=== PATIENT | female | born 1945 | race Caucasian/White ===

== ENCOUNTER → 2018-05-23 | Outpatient (CLI) | payer MEDICARE ==
[~2018-05-23] MED LIST: OXYACE5T PO; SULF10OPSA OD
[2018-05-25 12:14] LABS: Antinuclear Antibody Screen Negative (Negative)
== END | disposition home or self-care (01) ==
LOC: LAB EV 14:56 → LAB SHORT 14:56
PROVIDERS: Physician Assistant Medical
DX: R21 Rash and other nonspecific skin eruption (principal)
CPT/HCPCS: 85651; 86038; 86140

== ENCOUNTER 2019-08-31 11:25 | Day surgery (SDC) | payer MEDICARE ==
[~2019-08-31] VITALS: Ht 167.6 cm; Wt 75.7 kg
[~2019-08-31 11:25] MED LIST changes: +VITAMINS; +VOLTAREN100 GM
--- NOTE | 2019-08-31 15:08 | NUR ---
08/31/19 1508 Loren Lechuga 56 AND 62 MELANI USED ON THE UPPER ENDOSCOPY BY DR NICKERSON
== END 2019-08-31 15:50 | disposition home or self-care (01) ==
LOC: ORSCSDS 11:25
DX: R13.10 Dysphagia, unspecified (principal); D12.3 Benign neoplasm of transverse colon; K63.5 Polyp of colon; Z86.010 Personal history of colon polyps; K21.9 Gastro-esophageal reflux disease without esophagitis; K57.30 Diverticulosis of large intestine without perforation or abscess without bleeding; K64.8 Other hemorrhoids; K64.4 Residual hemorrhoidal skin tags
CPT/HCPCS: 88305; 88342; J2704; J7120

== ENCOUNTER 2020-07-12 19:13 | Emergency (ER) | payer OTHER ==
[~2020-07-12] VITALS: Ht 170.2 cm; Wt 74.8 kg
[2020-07-12 20:14] LABS: BASOPHILS ABSOLUTE AUTO 0.07 K/mm3 (0.00-0.23); BASOPHILS PERCENT AUTO 1 % (0-2); EOSINOPHILS ABSOLUTE AUTO 0.09 K/mm3 (0.00-0.68); EOSINOPHILS PERCENT AUTO 1 % (0-6); Hematocrit 44.9 % (33.0-51.0); Hemoglobin 14.4 g/dL (11.5-16.0); IMMATURE GRAN ABSOLUTE AUTO 0.06 K/mm3 (0.00-0.10); IMMATURE GRAN PERCENT AUTO 0 % (0-1); LYMPHOCYTES ABSOLUTE AUTO 1.18 K/mm3 (0.84-5.20); LYMPHOCYTES PERCENT AUTO 8 % (21-46); MONOCYTES ABSOLUTE AUTO 1.04 K/mm3 (0.16-1.47); MONOCYTES PERCENT AUTO 7 % (4-13); Mean Corpuscular HGB 29.4 pg (26.0-34.0); Mean Corpuscular HGB Conc 32.1 g/dL (31.5-36.5); Mean Corpuscular Volume 92 fL (80-100); Mean Platelet Volume 10.8 fL (9.1-12.4); NEUTROPHILS ABSOLUTE AUTO 12.29 K/mm3 (1.96-9.15); NEUTROPHILS PERCENT AUTO 83 % (41-73); Platelet Count 146 K/mm3 (150-400); RDW Standard Deviation 47.8 fL (35.1-46.3); White Blood Cell Count 14.73 K/mm3 (4.00-11.30)
[2020-07-12 20:33] LABS: Alanine Aminotransfer (ALT/SGP 25 U/L (12-78); Albumin/Globulin Ratio 0.9 (0.8-1.8); Alk Phos 94 U/L (50-136); Anion Gap 7 mmol/L (6-16); Aspartate Aminotrans (AST/SGOT 18 U/L (12-37); Bilirubin, Total 0.8 mg/dL (0.1-1.0); Blood Urea Nitrogen 11 mg/dL (8-24); Bun/Creatinine Ratio 13.9 (12.0-20.0); CO2, Blood 22 mmol/L (21-32); Calcium, Blood 9.3 mg/dL (8.5-10.1); Chloride, Blood 109 mmol/L (98-108); Creatinine, Blood 0.79 mg/dL (0.40-1.00); Globulin, Blood 4.3 g/dL (2.2-4.0); Glomerular Filtration Rate >60 (60-); Glucose, Blood 115 mg/dL (70-99); Potassium, Blood 3.9 mmol/L (3.5-5.5); Sodium, Blood 138 mmol/L (136-145); Total Protein, Blood 8.3 g/dL (6.4-8.2)
[2020-07-12 22:07] LABS: Source, Urine Clean Catch
[2020-07-12 22:12] LABS: Appearance, Urine Clear (Clear); Bilirubin, Urine Neg (Neg); Blood, Urine 1+ (Neg); Color, Urine Yellow (P-Yellow); Glucose Qualitative, Urine Neg (Neg); Ketones, Urine 3+ (Neg); Leukocyte Esterase, Urine Neg (Neg); Nitrite, Urine Neg (Neg); Protein, Urine 2+ (Neg); Urobilinogen, Urine NORM (Normal); pH, Urine 6.5 (5.0-8.0)
[2020-07-12 22:21] LABS: Bacteria Mod /hpf; Red Blood Cells, Urine 0-2 /hpf (0-2); Squamous Epithelial Cells Not Seen /hpf (Few); White Blood Cells, Urine 0-2 /hpf (0-5)
[2020-07-12] MEDS ORDERED: Norco 5-325 Ta1 EACH PO (23:04)
[2020-07-12] MEDS ORDERED: IBUP400 PO (23:04)
== END 2020-07-13 00:02 | disposition home or self-care (01) ==
LOC: ER 19:13
PROVIDERS: Physician Assistant
DX: N13.2 Hydronephrosis with renal and ureteral calculous obstruction (principal); Z91.040 Latex allergy status; Z88.0 Allergy status to penicillin; Z20.828 Contact with and (suspected) exposure to other viral communicable diseases
CPT/HCPCS: 36415; 74177; 80053; 81001; 83690; 85025; 87086; 96374-59; 96375; 99284-25; J0696; J1885; J2270; J7030; Q9967; U0003

== ENCOUNTER 2020-07-19 05:49 | Inpatient (IN) | payer OTHER ==
[~2020-07-19] VITALS: Ht 170.2 cm; Wt 74.8 kg
[~2020-07-19 05:49] MED LIST changes: +IBUP400 PO; +Norco 5-325 Ta1 EACH PO
[2020-07-19 06:41] LABS: Source, Urine Clean Catch
[2020-07-19 06:50] LABS: Appearance, Urine Turbid (Clear); Blood, Urine 5+ (Neg); Color, Urine Red (P-Yellow); Glucose Qualitative, Urine Neg (Neg); Ketones, Urine 4+ (Neg); Leukocyte Esterase, Urine 2+ (Neg); Nitrite, Urine Pos (Neg); Protein, Urine 3+ (Neg); Specific Gravity, Urine 1.015 (1.003-1.022); Urobilinogen, Urine 1+ (Normal)
[2020-07-19 07:08] LABS: Bilirubin, Urine 1+ (Neg); Red Blood Cells, Urine TNTC /hpf (0-2)
[2020-07-19 07:09] LABS: Bacteria Many /hpf; Squamous Epithelial Cells Rare /hpf (Few)
[2020-07-19 07:12] LABS: BASOPHILS ABSOLUTE AUTO 0.06 K/mm3 (0.00-0.23); BASOPHILS PERCENT AUTO 0 % (0-2); EOSINOPHILS ABSOLUTE AUTO 0.08 K/mm3 (0.00-0.68); EOSINOPHILS PERCENT AUTO 1 % (0-6); Hematocrit 42.6 % (33.0-51.0); Hemoglobin 14.3 g/dL (11.5-16.0); IMMATURE GRAN ABSOLUTE AUTO 0.08 K/mm3 (0.00-0.10); IMMATURE GRAN PERCENT AUTO 1 % (0-1); LYMPHOCYTES ABSOLUTE AUTO 1.16 K/mm3 (0.84-5.20); LYMPHOCYTES PERCENT AUTO 8 % (21-46); MONOCYTES ABSOLUTE AUTO 1.07 K/mm3 (0.16-1.47); MONOCYTES PERCENT AUTO 7 % (4-13); Mean Corpuscular HGB 29.5 pg (26.0-34.0); Mean Corpuscular HGB Conc 33.6 g/dL (31.5-36.5); Mean Corpuscular Volume 88 fL (80-100); Mean Platelet Volume 10.4 fL (9.1-12.4); NEUTROPHILS ABSOLUTE AUTO 12.19 K/mm3 (1.96-9.15); NEUTROPHILS PERCENT AUTO 83 % (41-73); Platelet Count 215 K/mm3 (150-400); RDW Coefficient Variation 13.1 % (11.7-14.2); RDW Standard Deviation 41.9 fL (35.1-46.3); Red Blood Cell Count 4.85 M/mm3 (3.80-5.20); White Blood Cell Count 14.64 K/mm3 (4.00-11.30)
[2020-07-19 07:33] LABS: Alanine Aminotransfer (ALT/SGP 61 U/L (12-78); Albumin, Blood 3.6 g/dL (3.4-5.0); Albumin/Globulin Ratio 0.8 (0.8-1.8); Alk Phos 115 U/L (50-136); Anion Gap 14 mmol/L (6-16); Aspartate Aminotrans (AST/SGOT 27 U/L (12-37); Bilirubin, Total 1.1 mg/dL (0.1-1.0); Blood Urea Nitrogen 6 mg/dL (8-24); Bun/Creatinine Ratio 8.3 (12.0-20.0); CO2, Blood 19 mmol/L (21-32); Calcium, Blood 8.8 mg/dL (8.5-10.1); Chloride, Blood 97 mmol/L (98-108); Creatinine, Blood 0.73 mg/dL (0.40-1.00); Globulin, Blood 4.8 g/dL (2.2-4.0); Glomerular Filtration Rate >60 (60-); Glucose, Blood 84 mg/dL (70-99); Potassium, Blood 3.6 mmol/L (3.5-5.5); Sodium, Blood 130 mmol/L (136-145); Total Protein, Blood 8.4 g/dL (6.4-8.2)
--- NOTE | 2020-07-19 18:22 | NUR ---
SHIFT SUMMARY. ER ADMIT TODAY. A&OX4, INDEPENDENT IN ROOM. PT DENIES SOB, ON RA, LUNGS CLEAR. PT REPORTS L FLANK PAIN, PAIN WAS MANAGED WELL WITH CURRENT ORDERS. PT REPORTS MILD NAUSEA THAT RESOLVED WITH IV ZOFRAN. NS IV AT 125/HR INFUSING WITHOUT ISSUE. AT BEDSIDE INTERMITTENTLY DURING SHIFT. PT VOIDING PINK/CLEAR URINE, PT STATES SHE HAS BEEN SINCE BEFORE ADMIT. NO NEW CHANGES OR CONCERNS.
--- NOTE | 2020-07-20 04:14 | NUR ---
SHIFT SUMMARY PT CONTINUED TO REPORT PAIN TO L FLANK ALONG WITH SOME PAIN WITH URINATION. MEDICATED THROUGHOUT THE NIGHT WITH NORCO 5/325. ONLY MEDICATING WITH 1 TAB MOST OF THE NIGHT BUT PT MORE PAINFUL THIS AM SO 2 TABS WERE GIVEN. URINE LIGHT RED, UNCHANGED PER PT SINCE ADMISSION. PT AFEBRILE. NO COMPLAINTS OF NAUSEA THROUGHOUT THE NIGHT. VOIDING WELL. HTN WHEN PAINFUL. RETURNS TO WNL AFTER MEDICATION. OTHERWISE VSS. WILL CONTINUE TO MONITOR AND REPORT TO DAY RN.
[2020-07-20 05:18] LABS: BASOPHILS ABSOLUTE AUTO 0.06 K/mm3 (0.00-0.23); BASOPHILS PERCENT AUTO 1 % (0-2); EOSINOPHILS ABSOLUTE AUTO 0.13 K/mm3 (0.00-0.68); EOSINOPHILS PERCENT AUTO 1 % (0-6); Hematocrit 38.1 % (33.0-51.0); Hemoglobin 12.2 g/dL (11.5-16.0); IMMATURE GRAN ABSOLUTE AUTO 0.05 K/mm3 (0.00-0.10); IMMATURE GRAN PERCENT AUTO 1 % (0-1); LYMPHOCYTES ABSOLUTE AUTO 0.96 K/mm3 (0.84-5.20); LYMPHOCYTES PERCENT AUTO 10 % (21-46); MONOCYTES ABSOLUTE AUTO 1.02 K/mm3 (0.16-1.47); MONOCYTES PERCENT AUTO 11 % (4-13); Mean Corpuscular HGB 29.1 pg (26.0-34.0); Mean Corpuscular Volume 91 fL (80-100); Mean Platelet Volume 10.2 fL (9.1-12.4); NEUTROPHILS ABSOLUTE AUTO 7.45 K/mm3 (1.96-9.15); NEUTROPHILS PERCENT AUTO 77 % (41-73); Platelet Count 195 K/mm3 (150-400); RDW Coefficient Variation 13.7 % (11.7-14.2); RDW Standard Deviation 45.7 fL (35.1-46.3); Red Blood Cell Count 4.19 M/mm3 (3.80-5.20); White Blood Cell Count 9.67 K/mm3 (4.00-11.30)
[2020-07-20 05:46] LABS: Anion Gap 4 mmol/L (6-16); Blood Urea Nitrogen 5 mg/dL (8-24); Bun/Creatinine Ratio 7.2 (12.0-20.0); CO2, Blood 25 mmol/L (21-32); Calcium, Blood 7.9 mg/dL (8.5-10.1); Chloride, Blood 109 mmol/L (98-108); Creatinine, Blood 0.69 mg/dL (0.40-1.00); Glomerular Filtration Rate >60 (60-); Glucose, Blood 112 mg/dL (70-99); Potassium, Blood 3.6 mmol/L (3.5-5.5); Sodium, Blood 138 mmol/L (136-145)
--- NOTE | 2020-07-20 18:35 | NUR ---
SHIFT SUMMARY PT IS AOX4 AND PLEASANT. PT MEDICATED FOR PAIN X3-4 THIS SHIFT. PAIN MANAGEMENT SEEMS TO BE GOOD AND NEW PAIN MEDICATIONS ON EMAR FOR BREAKTHROUGH PAIN. PT UP AND WALKING THROUGHOUT ROOM TO EASE PAIN. PT DENIES N/V, SOB, BUT APPETITE IS POOR. IN ROOM THROUGHOUT SHIFT. PT IN BED WITH CALL LIGHT IN REACH.
--- NOTE | 2020-07-21 05:07 | NUR ---
SHIFT SUMMARY PT SLEPT WELL THIS EVENING. PAIN IMPROVED FROM PREVIOUS NIGHT. PT ONLY MEDICATED WITH 30 MG TORADOL X 1 THIS EVENING. PT REPORTS PAIN REMAINS PRESENT WITH URINATION BUT THE PAIN WAS "NOT STRONG" THIS EVENING AND RESOLVED QUICKER AFTER URINATION. URINE CONTINUES TO BE RED. PT ALSO GIVEN ONE DOSE OF PYRIDIUM THIS EVENING. OTHERWISE PT HAD UNEVENTFUL NIGHT. VITAL SIGNS STABLE. NO ACUTE CHANGES THIS SHIFT. WILL CONTINUE TO MONITOR.
[2020-07-21 08:38] LABS: BASOPHILS ABSOLUTE AUTO 0.06 K/mm3 (0.00-0.23); BASOPHILS PERCENT AUTO 1 % (0-2); EOSINOPHILS ABSOLUTE AUTO 0.28 K/mm3 (0.00-0.68); EOSINOPHILS PERCENT AUTO 3 % (0-6); Hemoglobin 12.1 g/dL (11.5-16.0); IMMATURE GRAN ABSOLUTE AUTO 0.08 K/mm3 (0.00-0.10); IMMATURE GRAN PERCENT AUTO 1 % (0-1); LYMPHOCYTES ABSOLUTE AUTO 1.49 K/mm3 (0.84-5.20); LYMPHOCYTES PERCENT AUTO 17 % (21-46); MONOCYTES ABSOLUTE AUTO 0.67 K/mm3 (0.16-1.47); MONOCYTES PERCENT AUTO 8 % (4-13); Mean Corpuscular HGB 29.7 pg (26.0-34.0); Mean Corpuscular HGB Conc 31.8 g/dL (31.5-36.5); Mean Corpuscular Volume 93 fL (80-100); Mean Platelet Volume 10.2 fL (9.1-12.4); NEUTROPHILS ABSOLUTE AUTO 6.32 K/mm3 (1.96-9.15); NEUTROPHILS PERCENT AUTO 71 % (41-73); Platelet Count 211 K/mm3 (150-400); RDW Coefficient Variation 14.1 % (11.7-14.2); RDW Standard Deviation 48.4 fL (35.1-46.3); Red Blood Cell Count 4.07 M/mm3 (3.80-5.20)
[2020-07-21 08:56] LABS: Anion Gap 7 mmol/L (6-16); Blood Urea Nitrogen 7 mg/dL (8-24); Bun/Creatinine Ratio 10.3 (12.0-20.0); CO2, Blood 24 mmol/L (21-32); Calcium, Blood 8.4 mg/dL (8.5-10.1); Chloride, Blood 110 mmol/L (98-108); Creatinine, Blood 0.68 mg/dL (0.40-1.00); Glomerular Filtration Rate >60 (60-); Glucose, Blood 109 mg/dL (70-99); Potassium, Blood 3.5 mmol/L (3.5-5.5); Sodium, Blood 141 mmol/L (136-145)
--- NOTE | 2020-07-21 19:35 | NUR ---
SHIFT SUMMARY PT IS AOX4. PT HAS INCREASED PAIN THIS SHIFT. PAIN MEDICATION GIVEN X3 PER EMAR. PT REMAINED AT LEVEL 5-[address] ARAUJO AWARE OF PAIN STATUS. PT URINE LESS CLOUDY/RED THIS SHIFT, BUT STILL BLOODY. PT AMBULATED TO HELP WITH PAIN. IN WITH PT THROUGHOUT SHIFT. PT IS IN BED, CALL LIGHT IN REACH, IV INFUSING.
--- NOTE | 2020-07-22 04:45 | NUR ---
SHIFT SUMMARY PT'S PAIN MORE SEVERE THIS EVENING THAN PREVIOUS NIGHT. MEDICATED X 2 W/ 1 TAB NORCO 5/325 AND X 1 W/ 30 MG TORADOL. CONTINUED TO HAVE PAIN AND BURNING WITH URINATION AND LEFT FLANK PAIN. URINE IMPROVING THIS EVENING, LESS RED AT END OF SHIFT THAN AT START. PT REPORTED THAT SHE HAD A BM THIS SHIFT, LARGE BROWN AND FORMED. IT WAS NOT VISUALIZED BY STAFF. PT HYPERTENSIVE THIS EVENING AGAIN. LIKELY RELATED TO PAIN. OTHERWISE VSS. WILL CONTINUE TO MONITOR AND REPORT TO DAY RN.
[2020-07-22] MEDS ORDERED: HYDR1TAB94 PO (13:02)
[2020-07-22] MEDS ORDERED: ACET325 PO (13:02)
[2020-07-22] MEDS ORDERED: Pyridium100 MG PO (13:04)
[2020-07-22] MEDS ORDERED: Senokotxtra17.2 MG PO (13:06)
[2020-07-22] MEDS ORDERED: TAMS.4ER PO (13:07)
[2020-07-22] MEDS ORDERED: KETO10 PO (13:08)
--- NOTE | 2020-07-22 15:35 | NUR ---
DISCHARGE SUMMARY PT DC TO HOME WITH . DISCHARGE INSTRUCTIONS DISCUSSED WITH PT, INCLUDING FOLLOW UP APPT AND MEDICATION CHANGES. PT VERBALIZES UNDERSTANDING. DENIES FURTHER QUESTIONS AT THIS TIME. VITALS REVIEWED. PAIN MEDICATION ADMINISTERED. PT ESCORTED OUT IN WC WITH .
== END 2020-07-22 15:43 | disposition home or self-care (01) | DRG 698 ==
LOC: ER 05:49 → MEDS 10:26 → ENPENDDIS 07-22 10:55 → MEDS 07-22 15:43
PROVIDERS: Emergency Medicine; Internal Medicine; Nurse Practitioner Acute Care; ADMIT Internal Medicine
DX: T83.592A Infection and inflammatory reaction due to indwelling ureteral stent, initial encounter (principal); A41.9 Sepsis, unspecified organism; E87.2 Acidosis; N10 Acute pyelonephritis; E87.1 Hypo-osmolality and hyponatremia; E86.0 Dehydration; Z86.12 Personal history of poliomyelitis; Z96.0 Presence of urogenital implants
CPT/HCPCS: 36415; 74177; 80048; 80053; 81001; 83605; 83690; 85025; 87040; 87086; 96361; 96365-59; 96375; 97161; 99285-25; A9270; A9270-GY; J0696; J1650; J1885; J2270; J2405; J7030; Q9967

== ENCOUNTER 2021-12-19 08:24 | Day surgery (SDC) | payer OTHER ==
[~2021-12-19 08:24] MED LIST changes: +ACET325 PO; +HYDR1TAB94 PO; +KETO10 PO; +Pyridium100 MG PO; +Senokotxtra17.2 MG PO; +TAMS.4ER PO
--- NOTE | 2021-12-19 10:05 | NUR ---
PT REPOSITIONED IN BED FOR PT COMFORT. BANDAID TO LLQ ABD D&I. PT C/O PRESSURE IN THAT AREA. WILL CONTINUE TO MONITOR PT FOR CHANGES. PT AT BEDSIDE.
--- NOTE | 2021-12-19 10:32 | NUR ---
PT C/O PAIN WORSE THEN WHEN SHE ARRIVE TO DAY SURGERY. DRESSING REMAINS D&I, ABD SOFT. PT REPORTS THAT IT FILLS LIKE A FIST TO THAT AREA RATES PAIN 9/10. PT STARTES SHE USUALLY DOES NOT TAKE ANYTHING AT HOME FOR PAIN. AWAITING RETURN CALL FROM PROVIDED AT THIS TIME.
--- NOTE | 2021-12-19 10:58 | NUR ---
SPOKE WITH DR. CAMPOS AND UPDATED PT ON PT CONDITION. VO FOR TYLENOL. PT OFFERED ICE WHICH SHE DECLINED. PT DECLINED FOR ANYTHING TO EAT OR DRINK.
--- NOTE | 2021-12-19 11:19 | NUR ---
PT GIVEN TYLENOL 1000MG PO. PT ABLE TO DRINK WARM WATER. PT AMB TO BATHROOM. REPORTS THAT PAIN DECREASED WHEN SHE IS UP AND WALKING AROUND.
--- NOTE | 2021-12-19 11:58 | NUR ---
PT REPORTS PAIN ALMOST RESOLVED. NO ACUTE DISTRESS. REVIEWED DISCHARGE INSTRUCTIONS WITH PT AND HER . OUT OF DEPARTMENT VIA WHEELCHAIR. NO ACUTE DISTRESS.
== END 2021-12-19 11:59 | disposition home or self-care (01) ==
LOC: MOI CT 08:24 → ORSCMMR 08:24 → CT 09:00 → ORSCMMR 09:00
DX: C48.2 Malignant neoplasm of peritoneum, unspecified (principal); C78.6 Secondary malignant neoplasm of retroperitoneum and peritoneum; Z88.0 Allergy status to penicillin; Z91.040 Latex allergy status
CPT/HCPCS: 49180; 77012; 88305; 88341; 88342; A9270

== ENCOUNTER 2022-01-01 15:06 | Inpatient (IN) | payer OTHER ==
[~2022-01-01] VITALS: Ht 167.6 cm; Wt 77.2 kg
[2022-01-01 17:17] LABS: BASOPHILS ABSOLUTE AUTO 0.03 K/mm3 (0.00-0.23); BASOPHILS PERCENT AUTO 0 % (0-2); EOSINOPHILS PERCENT AUTO 0 % (0-6); Hematocrit 44.9 % (33.0-51.0); Hemoglobin 14.9 g/dL (11.5-16.0); IMMATURE GRAN ABSOLUTE AUTO 0.05 K/mm3 (0.00-0.10); IMMATURE GRAN PERCENT AUTO 0 % (0-1); LYMPHOCYTES ABSOLUTE AUTO 0.91 K/mm3 (0.84-5.20); LYMPHOCYTES PERCENT AUTO 6 % (21-46); MONOCYTES ABSOLUTE AUTO 0.68 K/mm3 (0.16-1.47); MONOCYTES PERCENT AUTO 5 % (4-13); Mean Corpuscular HGB 29.4 pg (26.0-34.0); Mean Corpuscular HGB Conc 33.2 g/dL (31.5-36.5); Mean Corpuscular Volume 89 fL (80-100); Mean Platelet Volume 11.2 fL (9.1-12.4); NEUTROPHILS ABSOLUTE AUTO 12.88 K/mm3 (1.96-9.15); NEUTROPHILS PERCENT AUTO 89 % (41-73); Platelet Count 283 K/mm3 (150-400); RDW Coefficient Variation 14.4 % (11.7-14.2); RDW Standard Deviation 46.3 fL (35.1-46.3); Red Blood Cell Count 5.07 M/mm3 (3.80-5.20); White Blood Cell Count 14.55 K/mm3 (4.00-11.30)
[2022-01-01 17:41] LABS: Alanine Aminotransfer (ALT/SGP 35 U/L (12-78); Albumin/Globulin Ratio 0.9 (0.8-1.8); Alk Phos 85 U/L (50-136); Anion Gap 6 mmol/L (6-16); Aspartate Aminotrans (AST/SGOT 53 U/L (12-37); Bilirubin, Total 1.2 mg/dL (0.1-1.0); Blood Urea Nitrogen 11 mg/dL (8-24); Bun/Creatinine Ratio 17.5 (12.0-20.0); CO2, Blood 22 mmol/L (21-32); Calcium, Blood 8.9 mg/dL (8.5-10.1); Chloride, Blood 102 mmol/L (98-108); Creatinine, Blood 0.63 mg/dL (0.40-1.00); Globulin, Blood 4.5 g/dL (2.2-4.0); Glomerular Filtration Rate >60 (60-); Glucose, Blood 124 mg/dL (70-99); Potassium, Blood 4.6 mmol/L (3.5-5.5); Sodium, Blood 130 mmol/L (136-145); Total Protein, Blood 8.5 g/dL (6.4-8.2)
[2022-01-01 22:54] LABS: Influenza A, PCR NEGATIVE (NEGATIVE); Influenza B, PCR NEGATIVE (NEGATIVE); Resp Syncytial Virus, PCR NEGATIVE (NEGATIVE); SARS-Cov-2 (COVID-19) PCR, MMC NEGATIVE (NEGATIVE)
[2022-01-02 05:09] LABS: BASOPHILS ABSOLUTE AUTO 0.03 K/mm3 (0.00-0.23); BASOPHILS PERCENT AUTO 0 % (0-2); EOSINOPHILS ABSOLUTE AUTO 0.09 K/mm3 (0.00-0.68); EOSINOPHILS PERCENT AUTO 1 % (0-6); Hematocrit 39.2 % (33.0-51.0); Hemoglobin 12.8 g/dL (11.5-16.0); IMMATURE GRAN ABSOLUTE AUTO 0.04 K/mm3 (0.00-0.10); IMMATURE GRAN PERCENT AUTO 0 % (0-1); LYMPHOCYTES ABSOLUTE AUTO 0.97 K/mm3 (0.84-5.20); LYMPHOCYTES PERCENT AUTO 9 % (21-46); MONOCYTES ABSOLUTE AUTO 1.06 K/mm3 (0.16-1.47); MONOCYTES PERCENT AUTO 10 % (4-13); Mean Corpuscular HGB 29.4 pg (26.0-34.0); Mean Corpuscular HGB Conc 32.7 g/dL (31.5-36.5); Mean Corpuscular Volume 90 fL (80-100); NEUTROPHILS ABSOLUTE AUTO 8.39 K/mm3 (1.96-9.15); NEUTROPHILS PERCENT AUTO 79 % (41-73); Platelet Count 209 K/mm3 (150-400); RDW Coefficient Variation 14.4 % (11.7-14.2); RDW Standard Deviation 47.2 fL (35.1-46.3); Red Blood Cell Count 4.36 M/mm3 (3.80-5.20); White Blood Cell Count 10.58 K/mm3 (4.00-11.30)
[2022-01-02 05:33] LABS: Alanine Aminotransfer (ALT/SGP 26 U/L (12-78); Albumin, Blood 3.2 g/dL (3.4-5.0); Albumin/Globulin Ratio 0.9 (0.8-1.8); Alk Phos 70 U/L (50-136); Anion Gap 6 mmol/L (6-16); Aspartate Aminotrans (AST/SGOT 27 U/L (12-37); Bilirubin, Total 0.8 mg/dL (0.1-1.0); Blood Urea Nitrogen 8 mg/dL (8-24); Bun/Creatinine Ratio 14.2 (12.0-20.0); CO2, Blood 25 mmol/L (21-32); Calcium, Blood 8.4 mg/dL (8.5-10.1); Chloride, Blood 107 mmol/L (98-108); Creatinine, Blood 0.56 mg/dL (0.40-1.00); Globulin, Blood 3.4 g/dL (2.2-4.0); Glomerular Filtration Rate >60 (60-); Glucose, Blood 122 mg/dL (70-99); Potassium, Blood 3.4 mmol/L (3.5-5.5); Sodium, Blood 138 mmol/L (136-145); Total Protein, Blood 6.6 g/dL (6.4-8.2)
--- NOTE | 2022-01-02 06:14 | NUR ---
Patient came in for abdominal pain N/V newly diagnosed with Uterine Cancer. Patient is alert and oriented x4, independent gait steady. No complains of pain. No N/V. Complains of constipation, her last BM was 01/01 but it was only a streak. Skin intact. Call light within reach. NPO.
--- NOTE | 2022-01-02 09:00 | NUR ---
PT PLEASANT COOP A/O. STATES ABD SOME TENDER WITH PALP. OTHERWISE OKAY. IS WALKING HALLS INDEPENDANTLY. ADMITS SMALL 1/2 CUP AMOUNT OF DIARRHEA THIS AM. H/R REG, NO MURMER NOTED. NO TELE. LUNGS CLEAR,RESP EASY, UNLABORED. ON R/A. BT X4 TINKLEY SOUNDS NOTED, ABD TENDER WITH PALP. OTHERWISE DENIES PAIN. LAST BM THIS AM NOTED. STATES NO REAL B/M FOR MANY DAYS. VOIDSINDEPENDANTLY TO BATHROOM. BED IN LOW POSITION, CALL LITE IN REACH, CALLS APPROP
--- NOTE | 2022-01-02 10:39 | NUR ---
SPOKE TO DR ROSS. PT STATES HAS HEAD C/T SCHEDULED FOR TODAY OUTPT. 3PM., HE OKAY SCHEDULE WITH US TO DO WHILE HERE. CALLED C/T. VERIFIED IS HEAD/BRAIN C/T W & W/O CONTRAST. WILL NEED TO BE DONE AFTER 1730 HAD CONTRST YEST ON ABD C/T. DR ROSS RECOMMENDS NOT DO AT THIS TIME.
--- NOTE | 2022-01-02 18:21 | NUR ---
PT QUITE PLEASANT TODAY. LIGHT ABD PAIN. HAS BEEN UP WALKING HALLS TODAY. HAS ADMITTED TO 2 SMALL DIARRHEA TODAY. HAVE NOT SEEN SURGICAL CONSULT DR TODAY. [facility] PLACEMENT SEWING DEPARTMENT SUPERVISOR, RENAN, CALLED ABOUT STATUS. REFERRED TO DR ROSS. FAMILY HAS BEEN IN TO SEE TODAY. NO NEW CONCERNS NOTED. BED IN LOW POSITION, CA LL LITE IN REACH, CALLS APPROP
--- NOTE | 2022-01-02 19:31 | NUR ---
DR ROSS STATES PT TO GO TO [facility]. CHARGE HAS BEEN NOTIFIED. REPORT CALLED TO NEISHA SARMIENTO, 193.
== END 2022-01-02 22:02 | disposition short-term general hospital (02) | DRG 755 ==
LOC: ER 15:06 → MEDS 22:29
PROVIDERS: Emergency Medicine; Physician Assistant; ADMIT Internal Medicine
DX: C55 Malignant neoplasm of uterus, part unspecified (principal); E87.1 Hypo-osmolality and hyponatremia; Z79.899 Other long term (current) drug therapy; Z98.890 Other specified postprocedural states; I10 Essential (primary) hypertension; Z20.822 Contact with and (suspected) exposure to COVID-19; Z91.040 Latex allergy status; Z88.0 Allergy status to penicillin; Z87.442 Personal history of urinary calculi; Z90.49 Acquired absence of other specified parts of digestive tract
CPT/HCPCS: 0241U; 36415; 74177; 80053; 83690; 85025; 96374; 96375; 99284-25; C9113; J1650; J1885; J2405; J7030; J7121; Q9967

== ENCOUNTER 2022-02-22 08:49 | Emergency (ER) | payer OTHER ==
[~2022-02-22] VITALS: Ht 167.6 cm; Wt 76.2 kg
[2022-02-22] MEDS ORDERED: Percocet 5-3251 EACH PO (09:05)
[2022-02-22] MEDS ORDERED: OLAN2.5 (09:06)
[2022-02-22] MEDS ORDERED: ONDA4 PO (09:07)
[2022-02-22] MEDS ORDERED: ESCI10 PO (09:07)
[2022-02-22 09:49] LABS: Hematocrit 43.3 % (33.0-51.0); Hemoglobin 14.9 g/dL (11.5-16.0); Mean Corpuscular HGB 29.9 pg (26.0-34.0); Mean Corpuscular HGB Conc 34.4 g/dL (31.5-36.5); Mean Corpuscular Volume 87 fL (80-100); Mean Platelet Volume 12.4 fL (9.1-12.4); Platelet Count 81 K/mm3 (150-400); RDW Coefficient Variation 14.4 % (11.7-14.2); RDW Standard Deviation 46.4 fL (35.1-46.3); Red Blood Cell Count 4.98 M/mm3 (3.80-5.20)
[2022-02-22 10:05] LABS: Albumin, Blood 3.8 g/dL (3.4-5.0); Albumin/Globulin Ratio 0.9 (0.8-1.8); Bilirubin, Total 1.9 mg/dL (0.1-1.0); Bun/Creatinine Ratio 34.5 (12.0-20.0); Calcium, Blood 9.5 mg/dL (8.5-10.1); Creatinine, Blood 0.67 mg/dL (0.40-1.00); Globulin, Blood 4.2 g/dL (2.2-4.0); Magnesium, Blood 1.8 mg/dL (1.6-2.4); Potassium, Blood 3.4 mmol/L (3.5-5.5)
[2022-02-22 10:11] LABS: BASOPHILS ABSOLUTE AUTO 0.01 K/mm3 (0.00-0.23); BASOPHILS PERCENT AUTO 1 % (0-2); EOSINOPHILS ABSOLUTE AUTO 0.03 K/mm3 (0.00-0.68); EOSINOPHILS PERCENT AUTO 4 % (0-6); IMMATURE GRAN ABSOLUTE AUTO 0.01 K/mm3 (0.00-0.10); IMMATURE GRAN PERCENT AUTO 1 % (0-1); LYMPHOCYTES ABSOLUTE AUTO 0.34 K/mm3 (0.84-5.20); LYMPHOCYTES PERCENT AUTO 44 % (21-46); MONOCYTES ABSOLUTE AUTO 0.25 K/mm3 (0.16-1.47); MONOCYTES PERCENT AUTO 33 % (4-13); NEUTROPHILS ABSOLUTE AUTO 0.13 K/mm3 (1.96-9.15); NEUTROPHILS PERCENT AUTO 17 % (41-73)
[2022-02-22 10:17] LABS: White Blood Cell Count 0.77 K/mm3 (4.00-11.30)
[2022-02-22] MEDS ORDERED: OLAN10A MM (12:16)
== END 2022-02-22 12:51 | disposition home or self-care (01) ==
LOC: ER 08:49
PROVIDERS: Physician Assistant
DX: R11.2 Nausea with vomiting, unspecified (principal); T45.1X5A Adverse effect of antineoplastic and immunosuppressive drugs, initial encounter; Z88.0 Allergy status to penicillin; Z91.040 Latex allergy status; Z79.899 Other long term (current) drug therapy
CPT/HCPCS: 80053; 83735; 85025; A9270; J1642; J1790; J7030

== ENCOUNTER 2022-04-24 14:17 | Day surgery (SDC) | payer OTHER ==
[~2022-04-24 14:17] MED LIST changes: +CEFD300 PO; +ESCI10 PO; +ESCITALOPRAM OXA5 MG PO; +METR500 PO; +OLAN10A MM; +OLAN2.5; +OMEP20ER PO; +ONDA4 PO; +ONDANSETRON ODT 8 MG; +OXYCODONE-ACET1 EAC3; +Percocet 5-3251 EACH PO; +SUCRALFATE PO
[2022-04-24] MEDS ORDERED: TRAM50 PO (14:48)
== END 2022-04-24 23:10 | disposition home or self-care (01) ==
LOC: RAD 14:17
DX: C57.00 Malignant neoplasm of unspecified fallopian tube (principal); Z88.0 Allergy status to penicillin; Z91.040 Latex allergy status
CPT/HCPCS: 36598; Q9967

== ENCOUNTER 2023-04-22 17:00 | Emergency (ER) | payer OTHER ==
[~2023-04-22] VITALS: Ht 167.6 cm; Wt 61.2 kg
[~2023-04-22 17:00] MED LIST changes: +TRAM50 PO
[2023-04-22 18:41] VITALS: BP 124/72
== END 2023-04-22 21:05 | disposition home or self-care (01) ==
LOC: ER 17:00
DX: R07.81 Pleurodynia (principal); M25.562 Pain in left knee; M25.552 Pain in left hip; M25.512 Pain in left shoulder; M25.572 Pain in left ankle and joints of left foot; W18.30XA Fall on same level, unspecified, initial encounter; Y92.009 Unspecified place in unspecified non-institutional (private) residence as the place of occurrence of the external cause; Z88.0 Allergy status to penicillin; Z91.040 Latex allergy status; Z79.899 Other long term (current) drug therapy; Z87.442 Personal history of urinary calculi
CPT/HCPCS: 71045; 73030; 73080; 73502; 73562-LT; 73610; 99284-25

== ENCOUNTER 2023-05-27 03:42 | Day surgery (SDC) | payer OTHER ==
[2023-05-26 10:11] LABS: BASOPHILS ABSOLUTE AUTO 0.04 K/mm3 (0.00-0.23); BASOPHILS PERCENT AUTO 1 % (0-2); EOSINOPHILS ABSOLUTE AUTO 0.06 K/mm3 (0.00-0.68); EOSINOPHILS PERCENT AUTO 2 % (0-6); Hematocrit 23.4 % (33.0-51.0); Hemoglobin 7.6 g/dL (11.5-16.0); IMMATURE GRAN ABSOLUTE AUTO 0.04 K/mm3 (0.00-0.10); IMMATURE GRAN PERCENT AUTO 1 % (0-1); LYMPHOCYTES ABSOLUTE AUTO 0.93 K/mm3 (0.84-5.20); LYMPHOCYTES PERCENT AUTO 23 % (21-46); MONOCYTES ABSOLUTE AUTO 0.68 K/mm3 (0.16-1.47); MONOCYTES PERCENT AUTO 17 % (4-13); Mean Corpuscular HGB 31.3 pg (26.0-34.0); Mean Corpuscular HGB Conc 32.5 g/dL (31.5-36.5); Mean Corpuscular Volume 96 fL (80-100); Mean Platelet Volume 10.5 fL (9.1-12.4); NEUTROPHILS ABSOLUTE AUTO 2.28 K/mm3 (1.96-9.15); NEUTROPHILS PERCENT AUTO 57 % (41-73); Platelet Count 177 K/mm3 (150-400); RDW Standard Deviation 57.1 fL (35.1-46.3); Red Blood Cell Count 2.43 M/mm3 (3.80-5.20); White Blood Cell Count 4.03 K/mm3 (4.00-11.30)
[2023-05-26 10:38] LABS: Albumin, Blood 3.5 g/dL (3.4-5.0); Bilirubin, Total 0.4 mg/dL (0.1-1.0); Bun/Creatinine Ratio 23.3 (12.0-20.0); Calcium, Blood 8.2 mg/dL (8.5-10.1); Creatinine, Blood 0.69 mg/dL (0.40-1.00); Globulin, Blood 3.4 g/dL (2.2-4.0); Total Protein, Blood 6.9 g/dL (6.4-8.2)
[2023-05-27 14:35] VITALS: BP 134/59
[2023-05-27 14:55] VITALS: BP 106/55
[2023-05-27 15:55] VITALS: BP 134/59
[2023-05-27 16:26] VITALS: BP 112/86
== END 2023-05-27 16:28 | disposition home or self-care (01) ==
LOC: ATC 03:42
PROVIDERS: Internal Medicine Hematology & Oncology
DX: C57.00 Malignant neoplasm of unspecified fallopian tube (principal); K21.9 Gastro-esophageal reflux disease without esophagitis; Z88.0 Allergy status to penicillin; Z91.040 Latex allergy status
CPT/HCPCS: 36415; 36430; 80053; 85025; 86304; 86850; 86900; 86901; 86923; J1642; J7050; P9016

== ENCOUNTER 2023-09-29 23:16 | Inpatient (IN) | payer OTHER ==
[~2023-09-29] VITALS: Ht 167.6 cm; Wt 67.2 kg
[2023-09-29 23:51] LABS: BASOPHILS ABSOLUTE AUTO 0.03 K/mm3 (0.00-0.23); BASOPHILS PERCENT AUTO 0 % (0-2); EOSINOPHILS PERCENT AUTO 0 % (0-6); Hemoglobin 13.2 g/dL (11.5-16.0); IMMATURE GRAN ABSOLUTE AUTO 0.04 K/mm3 (0.00-0.10); IMMATURE GRAN PERCENT AUTO 0 % (0-1); LYMPHOCYTES ABSOLUTE AUTO 0.62 K/mm3 (0.84-5.20); LYMPHOCYTES PERCENT AUTO 5 % (21-46); MONOCYTES ABSOLUTE AUTO 0.56 K/mm3 (0.16-1.47); MONOCYTES PERCENT AUTO 5 % (4-13); Mean Corpuscular HGB 31.6 pg (26.0-34.0); Mean Corpuscular Volume 96 fL (80-100); Mean Platelet Volume 10.5 fL (9.1-12.4); NEUTROPHILS ABSOLUTE AUTO 10.74 K/mm3 (1.96-9.15); NEUTROPHILS PERCENT AUTO 90 % (41-73); Platelet Count 157 K/mm3 (150-400); RDW Coefficient Variation 14.9 % (11.7-14.2); RDW Standard Deviation 51.9 fL (35.1-46.3); Red Blood Cell Count 4.18 M/mm3 (3.80-5.20); White Blood Cell Count 11.99 K/mm3 (4.00-11.30)
[2023-09-30 00:03] LABS: Bilirubin, Total 0.9 mg/dL (0.1-1.0); Bun/Creatinine Ratio 29.2 (12.0-20.0); Calcium, Blood 9.7 mg/dL (8.5-10.1); Creatinine, Blood 0.93 mg/dL (0.40-1.00); Globulin, Blood 4.1 g/dL (2.2-4.0); Potassium, Blood 3.5 mmol/L (3.5-5.5); Total Protein, Blood 8.1 g/dL (6.4-8.2)
--- NOTE | 2023-09-30 04:11 | NUR ---
ARRIVAL TO UNIT PT TRANSPORTED UP TO UNIT VIA GURNEY. TRANSFERRED TO BED VIA SLIDING SHEET. PT ABLE TO ANSWER QUESITONS ASKED. FORGETFUL OF DATES BUT KNOWS WHAT SHE HAS HAD DONE. LUNGS SOUNDS CLEAR. ABDOMEN IS TENDER AND MILDLY DISTENTED. DISTENTION AROUND THE COLOSTOMY SITE. COLOSTOMY PUTTING OUT BROWN SOLID OUTPUT. BOWEL SOUNDS ARE HYPOACTIVE. PT HAS N/T IN LE STATES THIS IS NORMAL FOR HER AND SHE HAS HED FOR YEARS. PT ORIENTED TO CALL LIGHT. CALL LIGHT WITHTIN REACH . NO OTHER CONCERNS AT THIS TIME.
[2023-09-30 07:08] VITALS: BP 126/79
[2023-09-30 08:04] LABS: BASOPHILS ABSOLUTE AUTO 0.03 K/mm3 (0.00-0.23); BASOPHILS PERCENT AUTO 0 % (0-2); EOSINOPHILS ABSOLUTE AUTO 0.02 K/mm3 (0.00-0.68); EOSINOPHILS PERCENT AUTO 0 % (0-6); Hematocrit 34.9 % (33.0-51.0); Hemoglobin 11.6 g/dL (11.5-16.0); IMMATURE GRAN ABSOLUTE AUTO 0.03 K/mm3 (0.00-0.10); IMMATURE GRAN PERCENT AUTO 0 % (0-1); LYMPHOCYTES PERCENT AUTO 11 % (21-46); MONOCYTES ABSOLUTE AUTO 0.94 K/mm3 (0.16-1.47); MONOCYTES PERCENT AUTO 8 % (4-13); Mean Corpuscular HGB Conc 33.2 g/dL (31.5-36.5); Mean Corpuscular Volume 96 fL (80-100); Mean Platelet Volume 10.6 fL (9.1-12.4); NEUTROPHILS ABSOLUTE AUTO 8.93 K/mm3 (1.96-9.15); NEUTROPHILS PERCENT AUTO 80 % (41-73); Platelet Count 139 K/mm3 (150-400); RDW Coefficient Variation 15.2 % (11.7-14.2); RDW Standard Deviation 54.3 fL (35.1-46.3); Red Blood Cell Count 3.63 M/mm3 (3.80-5.20); White Blood Cell Count 11.15 K/mm3 (4.00-11.30)
[2023-09-30 08:25] LABS: Albumin, Blood 3.3 g/dL (3.4-5.0); Bilirubin, Total 0.6 mg/dL (0.1-1.0); Bun/Creatinine Ratio 27.7 (12.0-20.0); Calcium, Blood 8.5 mg/dL (8.5-10.1); Creatinine, Blood 0.9 mg/dL (0.40-1.00); Globulin, Blood 3.4 g/dL (2.2-4.0); Potassium, Blood 3.4 mmol/L (3.5-5.5); Total Protein, Blood 6.7 g/dL (6.4-8.2)
--- NOTE | 2023-09-30 09:55 | NUR ---
"Spiritual Care Visit | Pt. request Pt. is awake in bed when she welcomed my visit. Spouse is present. Pt. is joyfully pleasant. Facilitate a life review. Pt. displays evidence of joyfully enduring her chemo treatments and verbalizes thankfulness in spite of her health and the loss of their home in the [place]. listen with empathy and interest and establish rapport. Prayed with Pt. and spouse. 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
--- NOTE | 2023-09-30 13:31 | NUR ---
NGT INSERTED IN R NARES AT APROX 0945. VERY LITTLE RETURN OF BROWN LIQUID. CXR 1V ORDERED TO CHECK PLACEMENT AND TO DETERMINE IF IT NEEDS TO BE ADVANCED. WAITING OFFICIAL READ. OSTOMY APPLIANCE CHANGED JUST PRIOR TO NGT PLACEMENT. AT THIS TIME THERE IS A SMALL AMT THICK BROWN STOOL IN OSTOMY BAG. WHEN CHANGED STOMA APPEARED PINK AND BEEFY. 2 1/4 APPLIANCE PLACED.
[2023-09-30 15:12] VITALS: BP 145/70
[2023-09-30 19:42] VITALS: BP 130/70
[2023-10-01 04:38] LABS: BASOPHILS ABSOLUTE AUTO 0.04 K/mm3 (0.00-0.23); BASOPHILS PERCENT AUTO 1 % (0-2); EOSINOPHILS PERCENT AUTO 2 % (0-6); Hematocrit 31.7 % (33.0-51.0); Hemoglobin 10.5 g/dL (11.5-16.0); IMMATURE GRAN ABSOLUTE AUTO 0.02 K/mm3 (0.00-0.10); IMMATURE GRAN PERCENT AUTO 0 % (0-1); LYMPHOCYTES ABSOLUTE AUTO 1.74 K/mm3 (0.84-5.20); LYMPHOCYTES PERCENT AUTO 25 % (21-46); MONOCYTES ABSOLUTE AUTO 0.64 K/mm3 (0.16-1.47); MONOCYTES PERCENT AUTO 9 % (4-13); Mean Corpuscular HGB 32.3 pg (26.0-34.0); Mean Corpuscular HGB Conc 33.1 g/dL (31.5-36.5); Mean Corpuscular Volume 98 fL (80-100); Mean Platelet Volume 10.4 fL (9.1-12.4); NEUTROPHILS ABSOLUTE AUTO 4.32 K/mm3 (1.96-9.15); NEUTROPHILS PERCENT AUTO 63 % (41-73); Platelet Count 109 K/mm3 (150-400); RDW Coefficient Variation 15.4 % (11.7-14.2); RDW Standard Deviation 54.4 fL (35.1-46.3); Red Blood Cell Count 3.25 M/mm3 (3.80-5.20); White Blood Cell Count 6.86 K/mm3 (4.00-11.30)
--- NOTE | 2023-10-01 04:40 | NUR ---
SHIFT SUMMARY PT ABLE TO SLEEP ALL NIGHT. DENIES ANY PAIN. UP TO THE BATHROOM, VOIDING. OSTOMY PRODUCING SOFT BROWN STOOL. SOME LIQUID STOOL IN THE BOTTOM OF THE BAG. PT IN GOOD SPIRIT. VSS. NO OTHER CONCERNS AT THIS TIME. CALL LIGHT WITHIN REACH
[2023-10-01 04:54] LABS: Bun/Creatinine Ratio 24.4 (12.0-20.0); Calcium, Blood 8.1 mg/dL (8.5-10.1); Creatinine, Blood 0.82 mg/dL (0.40-1.00); Magnesium, Blood 1.8 mg/dL (1.6-2.4); Potassium, Blood 3.2 mmol/L (3.5-5.5)
[2023-10-01 05:05] VITALS: BP 154/84
[2023-10-01 07:38] VITALS: BP 132/72
[2023-10-01 14:09] VITALS: BP 147/84
--- NOTE | 2023-10-01 17:18 | NUR ---
AT APROX 1641 PT CALLED W/ C/O STOMA LARGER "THAN IT HAS EVER BEEN". THIS RN INTO ROOM, STOMA HAS DOUBLE IN SIZE SINCE AM ASSESSMENT AND PT PAIN HAS INCREASED ON R SIDE OF STOMA COMPARED TO [address] VALDERRAMA NOTIFIED, NEW ORDER FOR STAT CT ABD/PELVIS W/CONTRAST AND MAKE PT NPO. OSTOMY APPLIANCE CHANGED, PLACED A 2 3/4 WHICH IS INCREASED IN SIZE OF APPLIANCE FROM YESTERDAYS THAT THIS RN PLACED OF 2 1/4.
[2023-10-01 19:43] VITALS: BP 177/93
[2023-10-02 04:21] VITALS: BP 159/80
[2023-10-02 04:50] LABS: BASOPHILS ABSOLUTE AUTO 0.04 K/mm3 (0.00-0.23); BASOPHILS PERCENT AUTO 1 % (0-2); EOSINOPHILS ABSOLUTE AUTO 0.07 K/mm3 (0.00-0.68); EOSINOPHILS PERCENT AUTO 1 % (0-6); Hematocrit 35.1 % (33.0-51.0); Hemoglobin 11.8 g/dL (11.5-16.0); IMMATURE GRAN ABSOLUTE AUTO 0.03 K/mm3 (0.00-0.10); IMMATURE GRAN PERCENT AUTO 1 % (0-1); LYMPHOCYTES ABSOLUTE AUTO 1.58 K/mm3 (0.84-5.20); LYMPHOCYTES PERCENT AUTO 28 % (21-46); MONOCYTES ABSOLUTE AUTO 0.46 K/mm3 (0.16-1.47); MONOCYTES PERCENT AUTO 8 % (4-13); Mean Corpuscular HGB 32.4 pg (26.0-34.0); Mean Corpuscular HGB Conc 33.6 g/dL (31.5-36.5); Mean Corpuscular Volume 96 fL (80-100); Mean Platelet Volume 10.4 fL (9.1-12.4); NEUTROPHILS ABSOLUTE AUTO 3.57 K/mm3 (1.96-9.15); NEUTROPHILS PERCENT AUTO 62 % (41-73); Platelet Count 116 K/mm3 (150-400); RDW Coefficient Variation 14.7 % (11.7-14.2); RDW Standard Deviation 51.9 fL (35.1-46.3); Red Blood Cell Count 3.64 M/mm3 (3.80-5.20); White Blood Cell Count 5.75 K/mm3 (4.00-11.30)
[2023-10-02 05:18] LABS: Bun/Creatinine Ratio 17.7 (12.0-20.0); Calcium, Blood 8.7 mg/dL (8.5-10.1); Creatinine, Blood 0.68 mg/dL (0.40-1.00); Magnesium, Blood 1.7 mg/dL (1.6-2.4)
[2023-10-02 07:19] VITALS: BP 135/96
--- NOTE | 2023-10-02 08:01 | NUR ---
SHIFT SUMMARY NOC. PT A/O X4. PT STOMA IS ROUND, BEEFY RED AND PRODUCING LIQUID BROWN STOOL. PT DENIES N/V. PT REPORTS PAIN MILD AND TOLERABLE. PT VOIDING AND TOLERATING CLEAR LIQUID DIET. PT RESTED WITH EYES CLOSED AND CALL LIGHT IN REACH.
[2023-10-02 15:29] VITALS: BP 166/80
[2023-10-02 19:12] VITALS: BP 185/88
--- NOTE | 2023-10-02 19:55 | NUR ---
PT HAS BEEN STABLE THIS SHIFT. BP HAS BEEN TRENDING UP T/O SHIFT. STOMA REMAINS EDEMETOUS. SMALL AMT LIQUID STOOL OUT IN OSTOMY. PT HAVING GAS IN BAG. REPORTS NO PAIN OR NAUSEA. TOLERATING CLEAR LIQUID DIET. PT VOIDING WELL. PT HAD MIRILAX WITH LITTLE RESULTS. PT HAD OT DOSE POTASSIUM THIS EVENING. PT AMBULATING HALLWAYS OFTEN. SHOWER THIS AFTERNOON. PLANS TO COME IN IN AM TO TALK WITH DOCTOR ABOUT PT PLAN OF CARE.
[2023-10-02 21:08] VITALS: BP 168/90
[2023-10-03 05:18] VITALS: BP 135/80
[2023-10-03 05:50] LABS: Bun/Creatinine Ratio 15.1 (12.0-20.0); Calcium, Blood 8.5 mg/dL (8.5-10.1); Creatinine, Blood 0.66 mg/dL (0.40-1.00); Potassium, Blood 3.3 mmol/L (3.5-5.5)
[2023-10-03 07:22] VITALS: BP 164/90
--- NOTE | 2023-10-03 08:32 | NUR ---
SHIFT SUMMARY NOC. PT A/O X4, BUT IS FORGETFUL AT TIMES. PT OSTOMY IS PRODUCING LIQUID BROWN OUTPUT. PT AMBULATORY IN THE ROOM. PT VOIDING URINE, PT HAD MILD DISCOMFORT IN ABDOMEN THIS SHIFT BUT DECLINED PAIN MEDICATION. PT'S BP WAS ELEVATED AND HOSPITALIST CALLED AND NEW ORDERS RECEIVED FOR HYDRALIZINE PRN FOR SBP OVER 160 MM/HG. MEDICATION NOT NEEDED THIS SHIFT. PT RESTED WITH EYES CLOSED AND CALL LIGHT IN REACH.
--- NOTE | 2023-10-03 09:31 | NUR ---
dr navarrete in to see pt.
--- NOTE | 2023-10-03 10:22 | NUR ---
DR ESCOBAR IN TO SEE PT. SPOUSE BEDSIDE.
[2023-10-03 14:41] VITALS: BP 140/77
--- NOTE | 2023-10-03 16:35 | NUR ---
SUMMARY PT HAS DENIED PAIN OR NAUSEA T/O SHIFT THUS FAR. STOMA APPEARS SLIGHTLY MORE EDEMATOUS THIS AFTERNOON THAN THIS AM. PRODUCING BROWN LIQUID. PT INDEPENDENT IN ROOM. AMBULATED IN [place] WITH SPOUSE. TOLERATING CLEAR LIQUIDS. ORDERS TO MAKE NPO AFTER 1000 ON 10/04/23 FOR POSSIBLE SURGERY TOMORROW AFTERNOON. CALL LIGHT IN REACH.
[2023-10-04] VITALS (16 sets, daily range): BP systolic 116–158; BP diastolic 69–98
--- NOTE | 2023-10-04 04:44 | NUR ---
SHIFT SUMMARY S/P SMALL BOWEL OBSTRUCTION. NO ACUTE CHANGES OVERNIGHT. VS WNL FOR PT. OSTOMY PINK & SWOLLEN c DISTENDED/HARD ABDOMEN. OSTOMY PASSING FLATUS & SOFT BROWN STOOL. PT REPORTS NO NAUSEA/PAIN AT THIS TIME. TOLERATING MINIMAL PO INTAKE, TO BE NPO AT 1000 ANTICIPATING SURGERY LATER TODAY. INDEPENDENT FOR TOILETING & AMBULATION. CALL LIGHT WITHIN REACH, BED IN LOWEST POSITION, WILL REPORT TO DAY RN.
--- NOTE | 2023-10-04 08:00 | NUR ---
Received report from Noc RN. Patient is mostly alert and has some short term memory. She is independnet in room and calls most of the time. She is able to communicate her needs. She has ostomy with some liquid brown stool present. She has been up in room. She started breakfast and seems to be tolerating liquids. is on his way in. She in on RA and and sats >90%.
[2023-10-04 10:54] LABS: BASOPHILS ABSOLUTE AUTO 0.02 K/mm3 (0.00-0.23); BASOPHILS PERCENT AUTO 1 % (0-2); EOSINOPHILS ABSOLUTE AUTO 0.06 K/mm3 (0.00-0.68); EOSINOPHILS PERCENT AUTO 1 % (0-6); Hematocrit 36.4 % (33.0-51.0); Hemoglobin 11.9 g/dL (11.5-16.0); IMMATURE GRAN ABSOLUTE AUTO 0.02 K/mm3 (0.00-0.10); IMMATURE GRAN PERCENT AUTO 1 % (0-1); LYMPHOCYTES ABSOLUTE AUTO 1.03 K/mm3 (0.84-5.20); LYMPHOCYTES PERCENT AUTO 25 % (21-46); MONOCYTES ABSOLUTE AUTO 0.38 K/mm3 (0.16-1.47); MONOCYTES PERCENT AUTO 9 % (4-13); Mean Corpuscular HGB Conc 32.7 g/dL (31.5-36.5); Mean Corpuscular Volume 98 fL (80-100); Mean Platelet Volume 10.3 fL (9.1-12.4); NEUTROPHILS ABSOLUTE AUTO 2.64 K/mm3 (1.96-9.15); NEUTROPHILS PERCENT AUTO 64 % (41-73); Platelet Count 145 K/mm3 (150-400); RDW Coefficient Variation 14.6 % (11.7-14.2); RDW Standard Deviation 52.5 fL (35.1-46.3); Red Blood Cell Count 3.72 M/mm3 (3.80-5.20); White Blood Cell Count 4.15 K/mm3 (4.00-11.30)
[2023-10-04 11:11] LABS: Bun/Creatinine Ratio 14.6 (12.0-20.0); Calcium, Blood 8.5 mg/dL (8.5-10.1); Creatinine, Blood 0.68 mg/dL (0.40-1.00); Potassium, Blood 3.2 mmol/L (3.5-5.5)
--- NOTE | 2023-10-04 11:26 | NUR ---
Dr Reyes has been by and will take to surgery after next case and rounds. Last oral intake was 1005, mirlax. She remains independent and NPO. She has been up for walks with . She remains on RA and sats >90%. Ostomy still has some liquid brown stool , patient manges ostomy and tells us output.
--- NOTE | 2023-10-04 14:58 | NUR ---
Patient has been in surgery for several hours and is expected to be out soon, significant other waiting in room .
--- NOTE | 2023-10-04 16:00 | NUR ---
10/04/23 1600 Rehana Rodriguez SECOND IV STARTED BY DR BARRETT TO RIGHT HAND.
--- NOTE | 2023-10-04 17:36 | NUR ---
PT BACK FROM SURGERY AT THIS TIME. SHE KEEPS HER EYES CLOSED AND IS MOANING IN PAIN. SHE IS ATTEMPTING TO COUGH BUT IS PAINFUL. ATTEMPTED TO EDUCATE PATIENT ON SPLINTING HER ABDOMEN. GORDILLO PRESENT PATENT AND DRAINING. MODERATE SANGUINOUS DRAINAGE ON BOTTOM, OUTLINED ON ARRIVAL. PT REMAINS ON 3L NASAL CANULA. WILL MEDICATE PER EMAR.
[2023-10-05 00:06] VITALS: BP 118/88
[2023-10-05 03:16] VITALS: BP 154/82
--- NOTE | 2023-10-05 04:41 | NUR ---
SHIFT SUMMARY POD1 EX LAP, ALVIN PT RESTED T/O NIGHT. PAIN MANAGED PER EMAR. PT TOOK IN SOME ICE CHIPS, TOLERATED WELL. GORDILLO PATENT, YELLOW URINE DRAINING. NO OUTPUT IN THE OSTOMY YET. PT ON 2L NC, SATTING ABOVE 95%. THONG DRESSING TO MIDLINE HAS SANGUINEOUS DRAINAGE FROM START OF SHIFT, NO CHANGES. VSS. NO OTHER CONCERNS AT THIS TIME. CALL LIGHT WITHIN REACH
[2023-10-05 07:04] VITALS: BP 167/87
[2023-10-05 14:37] VITALS: BP 123/62
--- NOTE | 2023-10-05 16:09 | NUR ---
shift summary pod 1 lysis of adhesions. picco dressing remains unchanged. dried sanguinous outlined, green light flashing. pain much improved since mold repairer initiated. pt reports she has been able to sleep. tolerating small amounts of clear liquids. no flatus or activity from stoma. gilbert patent and draining. repositioning patient as tolerated. plan is to encourage ambulation once pain controlled. pt very nervous to move. significant other at bedside for encouragement.
[2023-10-05 18:23] VITALS: BP 146/88
[2023-10-05 20:01] VITALS: BP 151/83
[2023-10-06 04:25] VITALS: BP 123/63
[2023-10-06 05:04] LABS: Hematocrit 33.2 % (33.0-51.0); Hemoglobin 10.6 g/dL (11.5-16.0); Mean Corpuscular HGB 31.8 pg (26.0-34.0); Mean Corpuscular HGB Conc 31.9 g/dL (31.5-36.5); Mean Corpuscular Volume 100 fL (80-100); Mean Platelet Volume 10.5 fL (9.1-12.4); Platelet Count 141 K/mm3 (150-400); RDW Coefficient Variation 15.2 % (11.7-14.2); RDW Standard Deviation 55.7 fL (35.1-46.3); Red Blood Cell Count 3.33 M/mm3 (3.80-5.20)
[2023-10-06 05:26] LABS: Albumin, Blood 2.8 g/dL (3.4-5.0); Anion Gap 3 mmol/L (6-16); Blood Urea Nitrogen 12 mg/dL (8-24); CO2, Blood 28 mmol/L (21-32); Calcium, Blood 7.9 mg/dL (8.5-10.1); Chloride, Blood 110 mmol/L (98-108); Creatinine, Blood 0.63 mg/dL (0.40-1.00); Glomerular Filtration Rate 92 (60-); Glucose, Blood 128 mg/dL (70-99); Magnesium, Blood 1.6 mg/dL (1.6-2.4); Phosphorus, Blood 1.7 mg/dL (2.5-4.9); Potassium, Blood 3.5 mmol/L (3.5-5.5); Sodium, Blood 141 mmol/L (136-145)
--- NOTE | 2023-10-06 05:28 | NUR ---
SHIFT SUMMARY PT RESTED WELL LAST NOC. NO ACUTE CHANGES. PT USING FENTANYL PUBLIC RECORDS RESEARCHER FOR PAIN MANAGEMENT. MIDLINE THONG DRESSING COMPRESSED WITH SCANT AMOUNT OF INCREASED BROWN DRAINAGE FROM OUTLINE. NO OUTPUT OR FLATUS NOTED IN OSTOMY BAG. ABD MODERATELY DISTENDED WITH HYPOACTIVE BTS X4 QUADRANTS. KPAD TO ABD FOR COMFORT. PT HESISTANT TO DRINK CLEAR LIQS, HAS BEEN SIPPING ON JUICE VERY SLOWLY. DENIES N/V. ENCOURAGING BED MOBILITY AND REPOSITIONING, BUT PT DECLINES FREQUENTLY. WAS ABLE TO FLOAT BILAT HIPS ON PILLOWS. GORDILLO PATENT WITH DARK YELLOW URINE. USES CALL LIGHT APPROPRIATELY.
[2023-10-06 07:13] VITALS: BP 131/71
[2023-10-06 14:00] VITALS: BP 143/88
--- NOTE | 2023-10-06 16:31 | NUR ---
THIS NURSE JUST RECIEVED REPORT FROM KIZZY JACKSON.
--- NOTE | 2023-10-06 16:48 | NUR ---
shift summary- pt is alert, plesant and cooperative. her appetite is poor. pt was up to the chair this shift. she ambulated in the smalls. pt and ot ordered this shift. her iv infultrated and her port was accessed. her bed is in the low positon adn call light is within reach.
[2023-10-06 19:10] VITALS: BP 187/99
[2023-10-06 20:55] VITALS: BP 156/90
[2023-10-07 04:05] VITALS: BP 123/64
--- NOTE | 2023-10-07 05:58 | NUR ---
SHIFT SUMMARY PT HAS RESTED MOST OF THE NIGHT. PT DID HAVE SOME INCREASED NAUSEA AT THE START OF THE SHIFT. PT MEDICATED WITH ZOFRAN WITHOUT MUCH EFFECT, NOTIFIED AND REGLAN ORDERED. MEDICATED WITH REGLAN WHICH WAS EFFECTIVE. PT HAS RESTED COMFORTABLY SINCE THAT TIME. FENTANYL WATER RESTORATION TECHNICIAN IN PLACE FOR PAIN, PT HAS BEEN USING. BOWEL TONES HYPOACTIVE, NO OUTPUT IN OSTOMY YET AND PT ISNT PASSING GAS. VITALS STABLE. MIDLINE THONG WNL, GORDILLO PATENT AND DRAINING. BED IN LOWEST POSITION, CALL LIGHT WITHIN REACH.
[2023-10-07 06:59] VITALS: BP 137/80
[2023-10-07 13:56] VITALS: BP 144/96
--- NOTE | 2023-10-07 17:49 | NUR ---
END OF SHIFT PT A&O X4. VSS. SPO2 > 92% ON RA. CLEAR LIQUID DIET. PT NAUSEOUS THIS SHIFT W/ 1 EPISODE OF LIQUID GREEN EMESIS. PT REQUIRING ANTI-NAUSEA MEDICATION X3 THIS SHIFT W/ LITTLE IMPROVEMENT. PT REPORTING ABD PAIN 8/10 W/ MOVEMENT & "NOT BAD" WHILE AT REST. PT SITTING UP AT EDGE OF BED & AMBULATING IN HALLWAY TODAY. FENTANYL SITE TECHNICIAN IN PLACE PER EMAR W/ PT REPORT OF IMPROVEMENT IN PAIN W/ SITE TECHNICIAN USE. NS GTT & FENTANYL SITE TECHNICIAN INFUSING VIA MEDIPORT. PT MIDLINE INCISION DRESSING W/ DRIED BLOOD ON DRESSING W/ OUTLINE IN PLACE. PT LLQ ILEOSTOMY W/ LIQUID BROWN STOOL IN BAG. GORDILLO CATH PATENT & DRAINING DARK YELLOW URINE.
[2023-10-07 19:14] VITALS: BP 151/90
[2023-10-08 02:30] VITALS: BP 143/93
--- NOTE | 2023-10-08 06:23 | NUR ---
SHIFT SUMMARY POD 4 EX LAP c LYSIS OF ADHESIONS. NO ACUTE CHANGES OVERNIGHT. VSS. MIDLINE THONG c SANGUINEOUS DRAINAGE- OUTLINED EDGES, D/I. PT TOLERATING MINIMAL CLEAR LIQUID PO INTAKE, PT REPORTED ONE EPISODE OF EMESIS AFTER INGESTING BEDTIME MIRALAX. PT REPORTED PAIN TOLERABLE OVERNIGHT, MEDICATED c VBA DEVELOPER PER EMAR. PT DID NOT AMBULATE THIS SHIFT. GORDILLO IN PLACE, DRAINING YELLOW URINE TO GRAVITY. LLQ OSTOMY EXCRETING LIQUID BROWN STOOL, NO REPORTS OF FLATUS PASSING. CALL LIGHT WITHIN REACH, BED IN LOWEST POSITION, WILL REPORT TO DAY RN.
[2023-10-08 06:29] LABS: Hemoglobin 11.6 g/dL (11.5-16.0); Mean Corpuscular HGB 32.4 pg (26.0-34.0); Mean Corpuscular HGB Conc 34.1 g/dL (31.5-36.5); Mean Platelet Volume 10.8 fL (9.1-12.4); Platelet Count 164 K/mm3 (150-400); RDW Coefficient Variation 14.7 % (11.7-14.2); RDW Standard Deviation 51.5 fL (35.1-46.3); Red Blood Cell Count 3.58 M/mm3 (3.80-5.20); White Blood Cell Count 10.63 K/mm3 (4.00-11.30)
[2023-10-08 06:45] LABS: Mean Corpuscular Volume 95 fL (80-100)
[2023-10-08 06:48] LABS: Magnesium, Blood 1.5 mg/dL (1.6-2.4)
[2023-10-08 06:49] LABS: Anion Gap 5 mmol/L (6-16); Blood Urea Nitrogen 15 mg/dL (8-24); Bun/Creatinine Ratio 24.8 (12.0-20.0); CO2, Blood 27 mmol/L (21-32); Calcium, Blood 8.4 mg/dL (8.5-10.1); Chloride, Blood 104 mmol/L (98-108); Creatinine, Blood 0.61 mg/dL (0.40-1.00); Glomerular Filtration Rate 93 (60-); Glucose, Blood 126 mg/dL (70-99); Phosphorus, Blood 2.9 mg/dL (2.5-4.9); Potassium, Blood 3.2 mmol/L (3.5-5.5); Sodium, Blood 136 mmol/L (136-145)
[2023-10-08 07:19] VITALS: BP 157/90
[2023-10-08 14:49] VITALS: BP 145/85
--- NOTE | 2023-10-08 18:05 | NUR ---
SHIFT SUMMARY A/O X3-4. POD4- ABDOMINAL INCISION HVAC SPECIALIST. OSTOMY PRODUCING BROWN LOOSE STOOL. GORDILLO REMOVED BY MILKER MACHINE AT APPROX 1300, CURRENTLY AWAITING POST VOID. TOLERATING SMALL AMOUNTS OF INTAKE W/ NO REPORT OF NAUSEA. NO PAIN THROUGHOUT SHIFT. AMBULATED SHORT DISTANCE. UP IN CHAIR FOR DINNER. WILL REPORT TO ONCOMING RN.
[2023-10-08 19:00] VITALS: BP 158/90
[2023-10-08 19:01] VITALS: BP 163/83
[2023-10-09 00:20] VITALS: BP 169/94
[2023-10-09 01:03] VITALS: BP 165/86
[2023-10-09 04:25] VITALS: BP 168/89
[2023-10-09 06:33] VITALS: BP 157/74
--- NOTE | 2023-10-09 07:30 | NUR ---
SHIFT SUMMARY POD #5 PT REMAINS A&O X4, ON RA, VSS, HYDRALIZINE GIVEN X1, PT HAS BEEN NAUSEATED THROUGH THE NIGHT, ZOFRAN/REGLAN GIVEN PER EMAR, INCREASED ABD DISTENTION NOTED, NO NEW STOOL OR FLATUS NOTED IN OSTOMY POUCH, STOMA REMAINS BEEFY RED, SURGICAL DRSG C/D/I, PO PERCOCET GIVEN X1, MINIMAL URINE OUTPUT, BEDSIDE REPORT GIVEN TO NEISHA JACKSON, PT SITTING AT BEDSIDE, CALL LIGHT IN REACH
[2023-10-09 07:31] VITALS: BP 146/91
[2023-10-09 09:02] LABS: Bun/Creatinine Ratio 34.1 (12.0-20.0); Calcium, Blood 8.3 mg/dL (8.5-10.1); Creatinine, Blood 0.65 mg/dL (0.40-1.00); Magnesium, Blood 1.8 mg/dL (1.6-2.4); Potassium, Blood 3.7 mmol/L (3.5-5.5)
[2023-10-09] MEDS ORDERED: LISI10 PO (11:01)
[2023-10-09] MEDS ORDERED: ZEJULA PO (11:01)
--- NOTE | 2023-10-09 13:59 | NUR ---
DISCHARGE PATIENT IS DISCHARGED WITH ALL BELONGINGS AND INSTRUCTIONS. SIGNS ACKNOWLEDGMENT AND LEAVES VIA PRIVATE VEHICLE. TOLERATED PO INTAKE, DENIES PAIN, DENIES NAUSEA. OSTOMY BAG WITH SMALL AMOUNT OF BROWN LIQUID OUTPUT.VSS. SPOUSE AND FAMILY IN ROOM ASSISTING WITH DISCHARGE HOME.
== END 2023-10-09 13:09 | disposition home or self-care (01) | DRG 337 ==
LOC: ER 23:16 → SURS 09-30 03:07
PROVIDERS: Emergency Medicine; Internal Medicine; Surgery; ADMIT Internal Medicine
PROC: 0DN80ZZ Release Small Intestine, Open Approach (ICD-10-PCS; principal; 2023-10-04 12:45)
DX: K56.50 Intestinal adhesions [bands], unspecified as to partial versus complete obstruction (principal); K43.5 Parastomal hernia without obstruction or gangrene; C55 Malignant neoplasm of uterus, part unspecified; C57.00 Malignant neoplasm of unspecified fallopian tube; E87.6 Hypokalemia; E83.42 Hypomagnesemia; E83.39 Other disorders of phosphorus metabolism; Z91.040 Latex allergy status; Z88.0 Allergy status to penicillin; Z86.12 Personal history of poliomyelitis; Z90.49 Acquired absence of other specified parts of digestive tract; Z90.710 Acquired absence of both cervix and uterus; Z93.3 Colostomy status
CPT/HCPCS: 36415; 71045; 74177; 80048; 80053; 80069; 83735; 84132; 85025; 85027; 88304; 93005; 93010; 94760; 96360; 97110; 97116; 97162; 99285-25; A9270; J0360; J0690; J1100; J1170; J2371; J2405; J2704; J2765; J3010; J3475; J3480; J7030; J7050; Q9967

== ENCOUNTER 2024-07-09 19:54 | Inpatient (IN) | payer OTHER ==
[~2024-07-09] VITALS: Ht 167.6 cm; Wt 70.6 kg
[~2024-07-09 19:54] MED LIST changes: +LISI10 PO; +Lisinopril-Hct1 EAC4 PO; +POTA20LUD PO; +ZEJULA PO
[2024-07-09] MEDS ORDERED: Ondansetron HCl 2 MG / ML 2ML Vial IV PRN (20:25)
[2024-07-09 20:51] LABS: BASOPHILS ABSOLUTE AUTO 0.04 K/mm3 (0.00-0.23); BASOPHILS PERCENT AUTO 0 % (0-2); EOSINOPHILS ABSOLUTE AUTO 0.12 K/mm3 (0.00-0.68); EOSINOPHILS PERCENT AUTO 1 % (0-6); Hematocrit 37.2 % (33.0-51.0); Hemoglobin 12.9 g/dL (11.5-16.0); IMMATURE GRAN ABSOLUTE AUTO 0.05 K/mm3 (0.00-0.10); IMMATURE GRAN PERCENT AUTO 1 % (0-1); LYMPHOCYTES ABSOLUTE AUTO 1.66 K/mm3 (0.84-5.20); LYMPHOCYTES PERCENT AUTO 18 % (21-46); MONOCYTES ABSOLUTE AUTO 0.79 K/mm3 (0.16-1.47); MONOCYTES PERCENT AUTO 8 % (4-13); Mean Corpuscular HGB 31.8 pg (26.0-34.0); Mean Corpuscular HGB Conc 34.7 g/dL (31.5-36.5); Mean Corpuscular Volume 92 fL (80-100); Mean Platelet Volume 10.2 fL (9.1-12.4); NEUTROPHILS ABSOLUTE AUTO 6.73 K/mm3 (1.96-9.15); NEUTROPHILS PERCENT AUTO 72 % (41-73); Platelet Count 179 K/mm3 (150-400); RDW Coefficient Variation 15.1 % (11.7-14.2); RDW Standard Deviation 51.7 fL (35.1-46.3); Red Blood Cell Count 4.06 M/mm3 (3.80-5.20); White Blood Cell Count 9.39 K/mm3 (4.00-11.30)
[2024-07-09 21:31] LABS: Albumin, Blood 4.4 g/dL (3.4-5.0); Bilirubin, Total 0.6 mg/dL (0.1-1.0); Bun/Creatinine Ratio 26.9 (12.0-20.0); Calcium, Blood 9.6 mg/dL (8.5-10.1); Creatinine, Blood 0.82 mg/dL (0.40-1.00); Globulin, Blood 4.2 g/dL (2.2-4.0); Potassium, Blood 3.4 mmol/L (3.5-5.5); Total Protein, Blood 8.6 g/dL (6.4-8.2)
[2024-07-09] MEDS ORDERED: Ondansetron HCl 2 MG / ML 2ML Vial IV ONE (22:10)
[2024-07-09] MEDS ORDERED: Morphine Sulfate 4 MG/1 ML Injection IV ONE (22:10)
[2024-07-10] MEDS ORDERED: Naloxone HCl 0.4MG / ML 1ML Vial IV PRN (00:45)
[2024-07-10] MEDS ORDERED: Morphine Sulfate 4 MG/1 ML Injection IV PRN (00:45)
[2024-07-10] MEDS ORDERED: Acetaminophen 650 MG Supp PR PRN (00:45)
[2024-07-10] MEDS ORDERED: FLU VACC TS2024-25(6MOS UP)/PF 45 MCG/0.5 ML SYRINGE IM ONE (00:45)
[2024-07-10] MEDS ORDERED: Ondansetron HCl 2 MG / ML 2ML Vial IV PRN (00:45)
[2024-07-10] MEDS ORDERED: NS 1,000 ML IV SCH ×2 (01:00→17:40)
[2024-07-10 01:21] VITALS: BP 166/85
[2024-07-10] MEDS ORDERED: ESCI5 PO (01:28)
[2024-07-10] MEDS ORDERED: Lisinopril-Hct1 EAC4 PO (01:29)
[2024-07-10] MEDS ORDERED: NIRAPARIB PO (01:30)
[2024-07-10] MEDS ORDERED: OMEP20ER PO (01:31)
--- NOTE | 2024-07-10 01:47 | NUR ---
ARRIVAL NOTE PT INTO ROOM FROM ED, VSS, PT IS FORGETFUL BUT ORIENTED TO PERSON, SITUATION AND PLACE. BED ALARM ON FOR SAFETY. PT DENIES PAIN AT THIS TIME.
[2024-07-10 03:54] VITALS: BP 121/82
[2024-07-10 04:11] LABS: BASOPHILS ABSOLUTE AUTO 0.04 K/mm3 (0.00-0.23); BASOPHILS PERCENT AUTO 0 % (0-2); EOSINOPHILS ABSOLUTE AUTO 0.11 K/mm3 (0.00-0.68); EOSINOPHILS PERCENT AUTO 1 % (0-6); Hematocrit 36.2 % (33.0-51.0); Hemoglobin 12.2 g/dL (11.5-16.0); IMMATURE GRAN ABSOLUTE AUTO 0.05 K/mm3 (0.00-0.10); IMMATURE GRAN PERCENT AUTO 1 % (0-1); LYMPHOCYTES ABSOLUTE AUTO 1.52 K/mm3 (0.84-5.20); LYMPHOCYTES PERCENT AUTO 16 % (21-46); MONOCYTES ABSOLUTE AUTO 1.01 K/mm3 (0.16-1.47); MONOCYTES PERCENT AUTO 11 % (4-13); Mean Corpuscular HGB 31.7 pg (26.0-34.0); Mean Corpuscular HGB Conc 33.7 g/dL (31.5-36.5); Mean Corpuscular Volume 94 fL (80-100); NEUTROPHILS ABSOLUTE AUTO 6.54 K/mm3 (1.96-9.15); NEUTROPHILS PERCENT AUTO 71 % (41-73); Platelet Count 167 K/mm3 (150-400); RDW Coefficient Variation 15.4 % (11.7-14.2); Red Blood Cell Count 3.85 M/mm3 (3.80-5.20); White Blood Cell Count 9.27 K/mm3 (4.00-11.30)
[2024-07-10 04:32] LABS: Albumin, Blood 3.6 g/dL (3.4-5.0); Bilirubin, Total 0.7 mg/dL (0.1-1.0); Bun/Creatinine Ratio 22.9 (12.0-20.0); Calcium, Blood 8.8 mg/dL (8.5-10.1); Creatinine, Blood 0.83 mg/dL (0.40-1.00); Globulin, Blood 3.5 g/dL (2.2-4.0); Potassium, Blood 3.8 mmol/L (3.5-5.5); Total Protein, Blood 7.1 g/dL (6.4-8.2)
--- NOTE | 2024-07-10 05:26 | NUR ---
SHIFT SUMMARY PT STATUS UNCHANGED SINCE ADMISSION. PT ABLE TO REST FOR SEVERAL HOURS. IV FLUIDS RUNNING ORDERED, PT NPO FOR POSSIBLE SURGERY, PLAN TO CONSULT W/ GENERAL SURGERY THIS AM. PT DENIES PAIN. OSTOMY W/ MINIMAL BROWN OUTPUT. PT HAVING CONT VOIDS. PT HOME MEDS LABELED W/ PATIENT STICKER AND LOCKED IN DRAWER. PT IS A POOR HISTORIAN AND UNABLE TO REPORT MOST OF HER MEDICAL HX. BED ALARM ON FOR SAFETY, CALL LIGHT IN PLACE.
[2024-07-10] MEDS ORDERED: Pantoprazole Sodium 40 MG Injection IV SCH (06:00)
[2024-07-10 07:44] VITALS: BP 129/70
[2024-07-10 14:51] VITALS: BP 126/62
--- NOTE | 2024-07-10 17:43 | NUR ---
SHIFT SUMMARY PT HAS BEEN UPBEAT & PLEASANT. NPO T/O SHIFT. HAS STARTED PASSING GAS & STOOL THRU OSTOMY THIS AFTERNOON. AMBULATED IN HALLWAYS. HAS DECLINED PAIN MEDICATION, ONLY TIME ABD PAIN WAS SIGNIFICANT WAS DURING MD's PALPATION.
[2024-07-10 19:18] VITALS: BP 153/82
--- NOTE | 2024-07-11 03:59 | NUR ---
SHIFT SUMMARY PT RESTED MOST OF SHIFT. IV FLUIDS RUNNING AT ORDERED RATE. PT EMPTIED HER OWN OSTOMY INDEPENDENTLY, INCREASE IN THICK BROWN OUTPUT SINCE LAST SHIFT. PT VOIDING APPROPRIATELY. SBA TO BATHROOM, PT FORGETS TO CALL. DENIES PAIN. DECREASE IN HERNIA SIZE SINCE LAST NOC SHIFT. PT STILL NPO. BED ALARM ON.
[2024-07-11 06:05] VITALS: BP 131/69
[2024-07-11 07:13] VITALS: BP 125/84
[2024-07-11] MEDS ORDERED: Mag Sulfate 1 GM/D5% 100ML 100 ML IV STA (11:59)
[2024-07-11 15:47] VITALS: BP 144/80
--- NOTE | 2024-07-11 16:26 | NUR ---
Pt. is awake in bed and welcomed my visit. Pt. is super pleasant, and displayed evidence of lonliness as she filled our lengthy stay with conversation. Facilitated a life history and considered matters of oleg and belief. The Pt. is verbalizes her committment to her [employer] faitth, and also verbalizes that she has the support of her mccallum and elders. Tppk Pt. by the hand and prayed with Pt. Pt. verbalized gratitude for the spiritual care visit and welcomed this web merchandiser to return.
[2024-07-11 19:24] VITALS: BP 148/69
--- NOTE | 2024-07-11 19:34 | NUR ---
SHIFT SUMMARY HAS HAD A GOOD DAY. OSTOMY CONTINUES TO HAVE GOOD OUTPUT. TOLERATING CLEAR LQs WELL BUT NERVOUS TO TRY FULL LQ. ENCOURAGED HER TO TRY A PUDDING THIS EVENING. CONT's TO DENY PAIN OR N/V. 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
[2024-07-12 04:49] VITALS: BP 166/79
[2024-07-12 05:57] LABS: Magnesium, Blood 2.1 mg/dL (1.6-2.4)
[2024-07-12 05:58] LABS: Bun/Creatinine Ratio 11.4 (12.0-20.0); Calcium, Blood 8.7 mg/dL (8.5-10.1); Creatinine, Blood 0.7 mg/dL (0.40-1.00); Potassium, Blood 3.5 mmol/L (3.5-5.5)
--- NOTE | 2024-07-12 06:05 | NUR ---
SHIFT SUMMARY NO ACUTE CHANGES TO REPORT OVERNIGHT. PT DENIES PAIN, OSOTMY PUTTING OUT LIQUID BROWN STOOL. BOWEL TONES HYPOACTIVE. PT TOLERATING PO INTAKE. PT HAS A RASH ON HER BACK THAT WAS NOTED UPON ADMISSION, PT REPORTS ITCHING AROUND RASH EARLIER THIS SHIFT. RASH AREA IS SMALL, MOSTLY TO UPPER BACK WITH SMALL RED BUMPS. PT REPORTS THAT THE ITCHING IMPROVED AT THIS TIME. PT A/OX3 BUT IS VERY FORGETFUL, DOES NOT USE CALL LIGHT AND SET BED ALARM OFF SEVERAL TIMES ATTEMPTING TO GET UP WITHOUT ASSISTACE. BED ALARM REMAINS IN PLACE. PLAN OF CARE REMAINS UNCHANGED. BED IN LOWEST POSITION, CALL LIGHT WITHIN REACH.
[2024-07-12 07:57] VITALS: BP 176/86
[2024-07-12 08:03] VITALS: BP 156/86
[2024-07-12] MEDS ORDERED: DOCU100 PO (11:47)
--- NOTE | 2024-07-12 12:46 | NUR ---
NO OUTPUT FROM COLOSTOMY TODAY. ACCORDING TO PATIENT, HER HERNIA SEEMS FIRMER THAN IT DID THIS MORNING WHEN DR. VALDERRAMA ASSESSED HER.
[2024-07-12] MEDS ORDERED: Lisinopril 20 MG Tab PO SCH (14:00)
[2024-07-12] MEDS ORDERED: Citalopram Hydrobromide 10 MG TAB PO SCH (14:00)
[2024-07-12 15:34] VITALS: BP 154/93
[2024-07-12 16:02] VITALS: BP 173/88
[2024-07-12] MEDS ORDERED: Pantoprazole Sodium 20 MG Tab PO SCH (16:30)
--- NOTE | 2024-07-12 16:53 | NUR ---
Met with this Pt. as she was walking the halls. The Pt. is pleasant and verbalizes an expectation that she might be going home soom. Listen with emathy and encouragement. Pt. verbalized the great value of the spiritual care visit she had experienced during her stay at [facility], and verbalized gratitude for the work of the chaplains.
[2024-07-12] MEDS ORDERED: MIRALAX17 GM PO (17:16)
--- NOTE | 2024-07-12 17:41 | NUR ---
PATIENT IS DISCHARGING HOME TONIGHT. HER IS HERE WAITING TO TAKE HER. DR. VALDERRAMA REASSESSED THE PATIENT THIS AFTERNOON. ABOUT 30ML STOOL IN HER COLOSTOMY, TOTAL OUTPUT FOR TODAY. IND IN THE ROOM. RA. NO C/O NAUSEA OR PAIN.
--- NOTE | 2024-07-12 17:50 | NUR ---
ESCORTED OUT WIA WC BY
== END 2024-07-12 17:50 | disposition home or self-care (01) | DRG 394 ==
LOC: ER 19:54 → SURS 07-10 00:43
PROVIDERS: Emergency Medicine; Internal Medicine; Student in an Organized Health Care Education/Training Program; ADMIT Internal Medicine
DX: K43.3 Parastomal hernia with obstruction, without gangrene (principal); C79.9 Secondary malignant neoplasm of unspecified site; F41.9 Anxiety disorder, unspecified; I10 Essential (primary) hypertension; E87.6 Hypokalemia; C55 Malignant neoplasm of uterus, part unspecified; C57.00 Malignant neoplasm of unspecified fallopian tube; E83.42 Hypomagnesemia; Z93.3 Colostomy status; Z90.710 Acquired absence of both cervix and uterus; Z90.49 Acquired absence of other specified parts of digestive tract; Z91.041 Radiographic dye allergy status; Z88.0 Allergy status to penicillin; Z86.12 Personal history of poliomyelitis; Z85.038 Personal history of other malignant neoplasm of large intestine
CPT/HCPCS: 36415; 74177; 80048; 80053; 83735; 85025; 96374-59; 96375; 99285-25; A9270; J2270; J2405; J2470; J3475; J7030; Q9967

== ENCOUNTER 2025-07-16 17:05 | Inpatient (IN) | payer OTHER ==
[~2025-07-16] VITALS: Ht 167.6 cm; Wt 60.9 kg
[~2025-07-16 17:05] MED LIST changes: +DOCU100 PO; +ESCI5 PO; +MIRALAX17 GM PO; +NIRAPARIB PO
[2025-07-16 17:58] LABS: BASOPHILS ABSOLUTE AUTO 0.02 K/mm3 (0.00-0.23); BASOPHILS PERCENT AUTO 1 % (0-2); EOSINOPHILS ABSOLUTE AUTO 0.03 K/mm3 (0.00-0.68); EOSINOPHILS PERCENT AUTO 1 % (0-6); IMMATURE GRAN ABSOLUTE AUTO 0.02 K/mm3 (0.00-0.10); IMMATURE GRAN PERCENT AUTO 1 % (0-1); LYMPHOCYTES ABSOLUTE AUTO 0.39 K/mm3 (0.84-5.20); LYMPHOCYTES PERCENT AUTO 13 % (21-46); MONOCYTES ABSOLUTE AUTO 0.36 K/mm3 (0.16-1.47); MONOCYTES PERCENT AUTO 12 % (4-13); Mean Corpuscular HGB Conc 34.4 g/dL (31.5-36.5); Mean Corpuscular Volume 95 fL (80-100); NEUTROPHILS ABSOLUTE AUTO 2.22 K/mm3 (1.96-9.15); NEUTROPHILS PERCENT AUTO 73 % (41-73); NRBC ABSOLUTE 0.00 K/mm3 (0.00-0.02); NRBC Auto 0.0 /100 WBC (0.0-0.2); RDW Coefficient Variation 14.9 % (11.7-14.2); RDW Standard Deviation 51.3 fL (35.1-46.3)
[2025-07-16 18:16] LABS: Hematocrit 15.7 % (33.0-51.0); Hemoglobin 5.4 g/dL (11.5-16.0); Platelet Count 23 K/mm3 (150-400)
[2025-07-16 18:25] LABS: Alanine Aminotransfer (ALT/SGP 23.0 U/L (12-78); Albumin, Blood 3.7 g/dL (3.4-5.0); Albumin/Globulin Ratio 1.1 (0.8-1.8); Anion Gap 7.0 mmol/L (3-11); Aspartate Aminotrans (AST/SGOT 18.0 U/L (12-37); Bilirubin, Total 0.5 mg/dL (0.1-1.0); Blood Urea Nitrogen 25.0 mg/dL (8-24); CO2, Blood 28.0 mmol/L (21-32); Calcium, Blood 8.8 mg/dL (8.5-10.1); Chloride, Blood 105.0 mmol/L (98-108); Creatinine, Blood 1.17 mg/dL (0.40-1.00); Globulin, Blood 3.3 g/dL (2.2-4.0); Glucose, Blood 143.0 mg/dL (70-99); Potassium, Blood 3.4 mmol/L (3.5-5.5); Sodium, Blood 137.0 mmol/L (136-145); Total Protein, Blood 7.0 g/dL (6.4-8.2)
[2025-07-16] MEDS ORDERED: Potassium Chlo20 ME1 PO (20:37)
[2025-07-16] MEDS ORDERED: Methocarbamol500 MG PO (20:37)
[2025-07-16] MEDS ORDERED: OXYC5 PO (20:38)
[2025-07-16] MEDS ORDERED: ACETAMINOPHEN500 M2 PO (20:38)
[2025-07-16 20:50] LABS: Prothrombin Time Results 12.4 Sec (9.7-11.5)
[2025-07-16] MEDS ORDERED: NS 1,000 ML IV SCH (21:40)
[2025-07-17] MEDS ORDERED: FLU VACC TS2025(65UP)/MF59C/PF 45 MCG/0.5 ML SYRINGE IM SCH (01:25)
[2025-07-17] MEDS ORDERED: Ondansetron HCl 2 MG / ML 2ML Vial IV PRN (01:25)
[2025-07-17 02:00] LABS: Hematocrit 17.1 % (33.0-51.0); Hemoglobin 5.9 g/dL (11.5-16.0)
[2025-07-17 02:03] LABS: IMMATURE RETIC FRACTION 3.5 % (2.3-16.0); RETIC HGB EQUIVALENT 34.5 pg (28.20-36.60); RETICULOCYTE ABSOLUTE 0.0104 M/mm3 (0.0200-0.1100); RETICULOCYTE COUNT PERCENT 0.57 % (0.50-2.50)
[2025-07-17 02:40] LABS: Ferritin, Serum 734.0 ng/mL (8-252); Total Iron Binding Capacity 262.0 ug/dL (250-450)
[2025-07-17] MEDS ORDERED: NS 1,000 ML IV ONE (04:31)
[2025-07-17 06:07] LABS: Source, Urine Clean Catch
[2025-07-17 06:13] LABS: Bilirubin, Urine Neg (Neg); Color, Urine Yellow (P-Yellow); Glucose Qualitative, Urine Neg (Neg); Ketones, Urine Neg (Neg); Leukocyte Esterase, Urine Neg (Neg); Protein, Urine 1+ (Neg); Specific Gravity, Urine 1.010 (1.003-1.022); Urobilinogen, Urine NORM (Normal)
[2025-07-17 06:46] LABS: BASOPHILS ABSOLUTE AUTO 0.01 K/mm3 (0.00-0.23); BASOPHILS PERCENT AUTO 0 % (0-2); EOSINOPHILS ABSOLUTE AUTO 0.13 K/mm3 (0.00-0.68); EOSINOPHILS PERCENT AUTO 4 % (0-6); Hematocrit 19.8 % (33.0-51.0); Hemoglobin 7.0 g/dL (11.5-16.0); IMMATURE GRAN ABSOLUTE AUTO 0.02 K/mm3 (0.00-0.10); IMMATURE GRAN PERCENT AUTO 1 % (0-1); LYMPHOCYTES ABSOLUTE AUTO 0.89 K/mm3 (0.84-5.20); LYMPHOCYTES PERCENT AUTO 29 % (21-46); MONOCYTES ABSOLUTE AUTO 0.33 K/mm3 (0.16-1.47); MONOCYTES PERCENT AUTO 11 % (4-13); Mean Corpuscular HGB Conc 35.4 g/dL (31.5-36.5); NEUTROPHILS ABSOLUTE AUTO 1.70 K/mm3 (1.96-9.15); NEUTROPHILS PERCENT AUTO 55 % (41-73); NRBC ABSOLUTE 0.00 K/mm3 (0.00-0.02); NRBC Auto 0.0 /100 WBC (0.0-0.2); RDW Coefficient Variation 16.9 % (11.7-14.2); RDW Standard Deviation 53.7 fL (35.1-46.3)
[2025-07-17 06:49] LABS: Mean Corpuscular Volume 88 fL (80-100)
[2025-07-17 06:51] LABS: Platelet Count 18 K/mm3 (150-400)
[2025-07-17 07:05] LABS: Alanine Aminotransfer (ALT/SGP 19.0 U/L (12-78); Albumin, Blood 3.2 g/dL (3.4-5.0); Albumin/Globulin Ratio 1.2 (0.8-1.8); Anion Gap 7.0 mmol/L (3-11); Aspartate Aminotrans (AST/SGOT 15.0 U/L (12-37); Bilirubin, Total 1.9 mg/dL (0.1-1.0); Blood Urea Nitrogen 27.0 mg/dL (8-24); CO2, Blood 27.0 mmol/L (21-32); Calcium, Blood 8.1 mg/dL (8.5-10.1); Chloride, Blood 106.0 mmol/L (98-108); Creatinine, Blood 1.13 mg/dL (0.40-1.00); Globulin, Blood 2.6 g/dL (2.2-4.0); Glucose, Blood 89.0 mg/dL (70-99); Potassium, Blood 3.6 mmol/L (3.5-5.5); Sodium, Blood 136.0 mmol/L (136-145); Total Protein, Blood 5.8 g/dL (6.4-8.2)
[2025-07-17] MEDS ORDERED: NIRAPARIB PO SCH (09:00)
[2025-07-17 11:13] VITALS: BP 155/82
[2025-07-17] MEDS ORDERED: ZEJULA PO (11:21)
[2025-07-17] MEDS ORDERED: ONDA4 PO (11:22)
[2025-07-17 15:32] VITALS: BP 127/68
[2025-07-17 16:56] LABS: Hematocrit 21.0 % (33.0-51.0); Hemoglobin 7.4 g/dL (11.5-16.0)
--- NOTE | 2025-07-17 18:31 | NUR ---
ADMISSION AND SHIFT SUMMARY PATIENT ADMITTED TO MEDICAL FLOOR. PATIENT ALERT AND INTERACTIVE BUT FORGETFUL. STATES SHE HAS "CHEMO BRAIN". PATIENT ABLE TO AMBULATE WITH STAND BY ASSISTANCE TO BATHROOM. PATIENT VERBALIZING VARIOUS DISCOMFORTS. STATES THAT SHE TAKES PAIN MEDS REGULARLY AT HOME. MEDIPORT ACCESSED IN THE ED PRIOR TO ADMISSION. IV FLUIDS INFUSING. PATIENT ADVANCED TO REGULAR DIET AND TOLERATING FOOD WELL. NO OUTPUT NOTED FROM OSTOMY AT THIS TIME. NO OTHER SKIN ISSUES AT THIS TIME.
[2025-07-17 19:58] VITALS: BP 131/70
[2025-07-18] VITALS (9 sets, daily range): BP systolic 135–179; BP diastolic 78–91
[2025-07-18 00:14] LABS: Hematocrit 19.8 % (33.0-51.0); Hemoglobin 6.8 g/dL (11.5-16.0)
[2025-07-18] MEDS ORDERED: NS 500 ML IV SCH (00:30)
--- NOTE | 2025-07-18 03:21 | NUR ---
NURSING NOTE: PT AOX4, SOME CONFUSION DUE TO CHEMOTHERAPY. PT HGB DOWN TO 6.8, PROVIDER NOTIFIED. 1U PRBC ORDERED. TRANSFUSION WENT WITHOUT COMPLICATIONS. PT TOLERATED WELL. ASSYMPTOMATIC AND NOW RESTING WELL IN BED. CONTINUING CARE.
--- NOTE | 2025-07-18 03:22 | NUR ---
NURSING NOTE: PT SPOUSE LEFT MEDICATIONS IN PT ROOM. PER PROTOCOL, MEDICATIONS WERE TAKEN TO PHARMACY AND LOCKED UP. WHILE PHARMACY WAS COUNTING MEDICATION, THEY FOUND LEXAPRO 5MG PILLS MIXED IN WITH THEIR OXYCODONE BOTTLE. PT NOT AWARE OF ANY DESCREPENCY. CHARGE NURSE NOTIFIED.
[2025-07-18] MEDS ORDERED: NS 250 ML IV PRN (04:45)
[2025-07-18 04:46] LABS: Hematocrit 26.4 % (33.0-51.0); Hemoglobin 9.2 g/dL (11.5-16.0); Mean Corpuscular HGB Conc 34.8 g/dL (31.5-36.5); Mean Corpuscular Volume 87 fL (80-100); NRBC ABSOLUTE 0.00 K/mm3 (0.00-0.02); NRBC Auto 0.0 /100 WBC (0.0-0.2); RDW Coefficient Variation 16.9 % (11.7-14.2); RDW Standard Deviation 52.1 fL (35.1-46.3)
[2025-07-18 05:09] LABS: Platelet Count 18 K/mm3 (150-400)
[2025-07-18 05:16] LABS: Anion Gap 7.0 mmol/L (3-11); Blood Urea Nitrogen 17.0 mg/dL (8-24); CO2, Blood 25.0 mmol/L (21-32); Calcium, Blood 8.5 mg/dL (8.5-10.1); Chloride, Blood 107.0 mmol/L (98-108); Creatinine, Blood 0.83 mg/dL (0.40-1.00); Glucose, Blood 92.0 mg/dL (70-99); Potassium, Blood 4.2 mmol/L (3.5-5.5); Sodium, Blood 135.0 mmol/L (136-145)
--- NOTE | 2025-07-18 05:30 | NUR ---
CRITICAL VALUE: PT HAD CRITICAL VALUE PLT OF 18 WHICH WAS THE SAME BEFORE. 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 GIVEN A 1U OF PRBCS PRIOR TO DRAW.
--- NOTE | 2025-07-18 05:41 | NUR ---
SHIFT SUMMARY: PT AOX4 BUT SOME CONFUSION AND FORGETFULNESS. CLAIMS "CHEMO BRAIN" PT TOLERATING MEDICATIONS WELL. MEDIPORT ACCESSED WITH TKO RUNNING. PT HAD A HGB OF 6.8, PROVIDER NOTIFIED, AND 1U PRBC ORDERED. PT TOLERATED INFUSION WELL. REDRAW SHOWS IMPROVEMENT IN HH. PT AMBULATING 1PA TO THE RESTROOM WELL. VERY PLEASANT AND COOPERATIVE IN CARE. PT COMPLAINS THAT HER OSTOMY HAS NOT HAD MUCH OUTPUT THE LAST FEW DAYS. STILL VOIDING APPROPRAITELY. PT'S ALSO LEFT MEDICATIONS IN THE ROOM WHICH WERE TAKEN TO THE PHARMACY PER PROTOCOL. UPON BEING COUNTED, THE PHARMACIST NOTED THAT HER OXYCODONE PILL BOTTLE ALSO HAD LEXAPRO PILLS IN IT. SEE NURSING NOTE FOR MORE DETAILS. PT IN BED SLEEPING, BED IN LOWEST POSITION, CALL LIGHT IN REACH. CONTIUING CARE.
--- NOTE | 2025-07-18 14:27 | NUR ---
DISCHARGE SUMMARY PATIENT DISCHARGE TO HOME AT 1420. PRINTED AND REVIEWED DISCHARGE INSTRUCTION WITH PATIENT, PATIENT VERBALIZED UNDERSTANDING. ALERT AND ORIENTED X4, VSS, TOLERATED PO AND VOIDING. DENIES PAIN. CHECKED BELONGING IN ROOM AND RETURNED TO PATIENT. HOME MEDS RETURNED TO PATIENT AND . PATIENT LEFT VIA WHEELCHAIR WITH LOUIE HAGER
== END 2025-07-18 14:20 | disposition home or self-care (01) | DRG 808 ==
LOC: ER 17:05 → ERHOLD 17:06 → MEDS 07-17 11:00
PROVIDERS: Emergency Medicine; Internal Medicine; ADMIT Internal Medicine
PROC: 30233N1 Transfusion of Nonautologous Red Blood Cells into Peripheral Vein, Percutaneous Approach (ICD-10-PCS; principal; 2025-07-17)
DX: D61.810 Antineoplastic chemotherapy induced pancytopenia (principal); E43 Unspecified severe protein-calorie malnutrition; N17.9 Acute kidney failure, unspecified; T45.1X5A Adverse effect of antineoplastic and immunosuppressive drugs, initial encounter; I10 Essential (primary) hypertension; E87.6 Hypokalemia; K21.9 Gastro-esophageal reflux disease without esophagitis; C57.00 Malignant neoplasm of unspecified fallopian tube; Z93.3 Colostomy status; Z87.442 Personal history of urinary calculi; Z88.0 Allergy status to penicillin; Z91.040 Latex allergy status; Z79.899 Other long term (current) drug therapy; Z90.89 Acquired absence of other organs; Z90.49 Acquired absence of other specified parts of digestive tract; Z98.890 Other specified postprocedural states; Z85.038 Personal history of other malignant neoplasm of large intestine; Z68.21 Body mass index [BMI] 21.0-21.9, adult
CPT/HCPCS: 36415; 36430; 71275; 74177; 80048; 80053; 82728; 83540; 83550; 83605; 83690; 83880; 84484; 85014; 85018; 85025; 85027; 85045; 85610; 86850; 86900; 86901; 86923; 93005; 93010; 96374-59; 99285-25; A9270; G0378; J1642; J2405; J3480; J7030; J7050; P9016; Q9967

== ENCOUNTER 2025-08-13 15:31 | Emergency (ER) | payer OTHER ==
[~2025-08-13] VITALS: Ht 172.7 cm; Wt 45.4 kg
[~2025-08-13 15:31] MED LIST changes: +ACETAMINOPHEN500 M2 PO; +Methocarbamol500 MG PO; +OXYC5 PO; +Potassium Chlo20 ME1 PO
[2025-08-13] MEDS ORDERED: NS 1,000 ML IV SCH (16:55)
[2025-08-13] MEDS ORDERED: Ondansetron HCl 2 MG / ML 2ML Vial IV ONE (16:55)
[2025-08-13 17:39] LABS: EOSINOPHILS ABSOLUTE AUTO 0.01 K/mm3 (0.00-0.68); EOSINOPHILS PERCENT AUTO 0 % (0-6); MONOCYTES ABSOLUTE AUTO 0.49 K/mm3 (0.16-1.47); NRBC ABSOLUTE 0.00 K/mm3 (0.00-0.02); NRBC Auto 0.0 /100 WBC (0.0-0.2); RDW Coefficient Variation 15.1 % (11.7-14.2)
[2025-08-13 17:49] LABS: BASOPHILS ABSOLUTE AUTO 0.02 K/mm3 (0.00-0.23); BASOPHILS PERCENT AUTO 0 % (0-2); Hemoglobin 6.1 g/dL (11.5-16.0); IMMATURE GRAN ABSOLUTE AUTO 0.04 K/mm3 (0.00-0.10); IMMATURE GRAN PERCENT AUTO 1 % (0-1); LYMPHOCYTES ABSOLUTE AUTO 0.43 K/mm3 (0.84-5.20); LYMPHOCYTES PERCENT AUTO 9 % (21-46); MONOCYTES PERCENT AUTO 10 % (4-13); Mean Corpuscular HGB Conc 35.5 g/dL (31.5-36.5); Mean Corpuscular Volume 86 fL (80-100); NEUTROPHILS ABSOLUTE AUTO 4.00 K/mm3 (1.96-9.15); NEUTROPHILS PERCENT AUTO 80 % (41-73); RDW Standard Deviation 46.3 fL (35.1-46.3)
[2025-08-13 17:58] LABS: Alanine Aminotransfer (ALT/SGP 31.0 U/L (12-78); Albumin, Blood 3.8 g/dL (3.4-5.0); Albumin/Globulin Ratio 1.4 (0.8-1.8); Anion Gap 10.0 mmol/L (3-11); Aspartate Aminotrans (AST/SGOT 26.0 U/L (12-37); Bilirubin, Total 0.6 mg/dL (0.1-1.0); Blood Urea Nitrogen 31.0 mg/dL (8-24); CO2, Blood 22.0 mmol/L (21-32); Calcium, Blood 8.6 mg/dL (8.5-10.1); Chloride, Blood 108.0 mmol/L (98-108); Creatinine, Blood 1.08 mg/dL (0.40-1.00); Globulin, Blood 2.8 g/dL (2.2-4.0); Glucose, Blood 122.0 mg/dL (70-99); Potassium, Blood 3.2 mmol/L (3.5-5.5); Sodium, Blood 137.0 mmol/L (136-145); Total Protein, Blood 6.6 g/dL (6.4-8.2)
[2025-08-13 18:07] LABS: Source, Urine Clean Catch
[2025-08-13 18:19] LABS: Hematocrit 17.2 % (33.0-51.0)
[2025-08-13 18:20] LABS: Platelet Count 17 K/mm3 (150-400)
[2025-08-13 18:31] LABS: Bilirubin, Urine Neg (Neg); Color, Urine Yellow (P-Yellow); Glucose Qualitative, Urine Neg (Neg); Ketones, Urine Neg (Neg); Leukocyte Esterase, Urine Neg (Neg); Protein, Urine 1+ (Neg); Specific Gravity, Urine 1.010 (1.003-1.022); Urobilinogen, Urine NORM (Normal)
[2025-08-14 02:15] VITALS: BP 130/72
== END 2025-08-14 02:35 | disposition home or self-care (01) ==
LOC: ER 15:31
PROVIDERS: Student in an Organized Health Care Education/Training Program
DX: R11.2 Nausea with vomiting, unspecified (principal); D64.9 Anemia, unspecified; C18.9 Malignant neoplasm of colon, unspecified; C79.9 Secondary malignant neoplasm of unspecified site; Z91.040 Latex allergy status; Z88.0 Allergy status to penicillin; Z91.018 Allergy to other foods; Z79.899 Other long term (current) drug therapy
CPT/HCPCS: 36430; 71046; 80053; 82272; 83690; 84484; 85025; 86850; 86900; 86901; 86923; 93005; 93010; 96361; 96374; 99285-25; J2405; J7030; P9016

== ENCOUNTER 2025-09-11 00:56 | Observation (INO) | payer OTHER ==
[~2025-09-11] VITALS: Ht 157.5 cm; Wt 58.7 kg
[2025-09-11] VITALS (18 sets, daily range): BP systolic 104–127; BP diastolic 55–72
[~2025-09-11 00:56] MED LIST changes: -ESCI5 PO
[2025-09-11 01:50] LABS: BASOPHILS ABSOLUTE AUTO 0.01 K/mm3 (0.00-0.23); BASOPHILS PERCENT AUTO 0 % (0-2); EOSINOPHILS ABSOLUTE AUTO 0.02 K/mm3 (0.00-0.68); EOSINOPHILS PERCENT AUTO 0 % (0-6); Hematocrit 19.5 % (33.0-51.0); Hemoglobin 6.1 g/dL (11.5-16.0); IMMATURE GRAN ABSOLUTE AUTO 0.03 K/mm3 (0.00-0.10); IMMATURE GRAN PERCENT AUTO 1 % (0-1); LYMPHOCYTES ABSOLUTE AUTO 0.65 K/mm3 (0.84-5.20); LYMPHOCYTES PERCENT AUTO 14 % (21-46); MONOCYTES ABSOLUTE AUTO 0.54 K/mm3 (0.16-1.47); MONOCYTES PERCENT AUTO 11 % (4-13); Mean Corpuscular HGB Conc 31.3 g/dL (31.5-36.5); Mean Corpuscular Volume 94 fL (80-100); NEUTROPHILS ABSOLUTE AUTO 3.50 K/mm3 (1.96-9.15); NEUTROPHILS PERCENT AUTO 74 % (41-73); NRBC ABSOLUTE 0.00 K/mm3 (0.00-0.02); NRBC Auto 0.0 /100 WBC (0.0-0.2); RDW Coefficient Variation 15.5 % (11.7-14.2); RDW Standard Deviation 51.8 fL (35.1-46.3)
[2025-09-11 01:53] LABS: Platelet Count 21 K/mm3 (150-400)
[2025-09-11] MEDS ORDERED: NS 1,000 ML IV SCH (02:45)
[2025-09-11 02:58] LABS: Alanine Aminotransfer (ALT/SGP 33.0 U/L (12-78); Albumin, Blood 3.9 g/dL (3.4-5.0); Albumin/Globulin Ratio 1.1 (0.8-1.8); Anion Gap 12.0 mmol/L (3-11); Aspartate Aminotrans (AST/SGOT 25.0 U/L (12-37); Bilirubin, Total 0.7 mg/dL (0.1-1.0); Blood Urea Nitrogen 44.0 mg/dL (8-24); CO2, Blood 21.0 mmol/L (21-32); Calcium, Blood 8.9 mg/dL (8.5-10.1); Chloride, Blood 104.0 mmol/L (98-108); Creatinine, Blood 1.52 mg/dL (0.40-1.00); Globulin, Blood 3.6 g/dL (2.2-4.0); Glucose, Blood 125.0 mg/dL (70-99); Potassium, Blood 3.6 mmol/L (3.5-5.5); Sodium, Blood 133.0 mmol/L (136-145); Total Protein, Blood 7.5 g/dL (6.4-8.2)
[2025-09-11] MEDS ORDERED: Ondansetron HCl 2 MG / ML 2ML Vial IV PRN (03:40)
[2025-09-11] MEDS ORDERED: FentaNYL Citrate 50 MCG/ML 2 ML Injection IV PRN ×2 (03:40→07:10)
[2025-09-11] MEDS ORDERED: FLU VACC TS2025(65UP)/MF59C/PF 45 MCG/0.5 ML SYRINGE IM SCH (03:40)
[2025-09-11 03:46] LABS: IMMATURE RETIC FRACTION 5.1 % (2.3-16.0); RETIC HGB EQUIVALENT 35.9 pg (28.20-36.60); RETICULOCYTE ABSOLUTE 0.0042 M/mm3 (0.0200-0.1100); RETICULOCYTE COUNT PERCENT 0.22 % (0.50-2.50)
[2025-09-11] MEDS ORDERED: Magnesium Hydroxide Conc 10 ML UDC PO PRN (04:00)
[2025-09-11] MEDS ORDERED: NS 500 ML IV SCH (05:25)
[2025-09-11 05:48] LABS: BASOPHILS ABSOLUTE AUTO 0.01 K/mm3 (0.00-0.23); BASOPHILS PERCENT AUTO 0 % (0-2); EOSINOPHILS ABSOLUTE AUTO 0.02 K/mm3 (0.00-0.68); EOSINOPHILS PERCENT AUTO 1 % (0-6); IMMATURE GRAN ABSOLUTE AUTO 0.02 K/mm3 (0.00-0.10); IMMATURE GRAN PERCENT AUTO 1 % (0-1); LYMPHOCYTES ABSOLUTE AUTO 0.83 K/mm3 (0.84-5.20); LYMPHOCYTES PERCENT AUTO 27 % (21-46); MONOCYTES ABSOLUTE AUTO 0.40 K/mm3 (0.16-1.47); MONOCYTES PERCENT AUTO 13 % (4-13); Mean Corpuscular HGB Conc 33.8 g/dL (31.5-36.5); NEUTROPHILS ABSOLUTE AUTO 1.75 K/mm3 (1.96-9.15); NEUTROPHILS PERCENT AUTO 58 % (41-73); NRBC ABSOLUTE 0.00 K/mm3 (0.00-0.02); NRBC Auto 0.0 /100 WBC (0.0-0.2); RDW Coefficient Variation 15.4 % (11.7-14.2); RDW Standard Deviation 48.4 fL (35.1-46.3)
[2025-09-11 06:00] LABS: Mean Corpuscular Volume 86 fL (80-100)
[2025-09-11 06:04] LABS: Hematocrit 13.9 % (33.0-51.0); Hemoglobin 4.7 g/dL (11.5-16.0)
[2025-09-11 06:05] LABS: Platelet Count 16 K/mm3 (150-400)
[2025-09-11 07:05] LABS: Ferritin, Serum 929.0 ng/mL (8-252); Total Iron Binding Capacity 346.0 ug/dL (250-450)
[2025-09-11 07:11] LABS: Alanine Aminotransfer (ALT/SGP 25.0 U/L (12-78); Albumin, Blood 3.2 g/dL (3.4-5.0); Albumin/Globulin Ratio 1.1 (0.8-1.8); Anion Gap 10.0 mmol/L (3-11); Aspartate Aminotrans (AST/SGOT 15.0 U/L (12-37); Bilirubin, Total 0.6 mg/dL (0.1-1.0); Blood Urea Nitrogen 41.0 mg/dL (8-24); CO2, Blood 22.0 mmol/L (21-32); Calcium, Blood 7.9 mg/dL (8.5-10.1); Chloride, Blood 106.0 mmol/L (98-108); Creatinine, Blood 1.45 mg/dL (0.40-1.00); Globulin, Blood 2.9 g/dL (2.2-4.0); Glucose, Blood 108.0 mg/dL (70-99); Potassium, Blood 3.3 mmol/L (3.5-5.5); Sodium, Blood 135.0 mmol/L (136-145); Total Protein, Blood 6.1 g/dL (6.4-8.2)
--- NOTE | 2025-09-11 07:20 | NUR ---
SHIFT SUMMARY PATIENT ARRIVED FROM ER AT 0422, STARTED RECIVING TRANSFUSION PER EMAR, PATIENT HAS NOT HAD ANY POINTS OF CONCERN. PATIENT IS PLESANTLY CONFUSED SO MED REC WAS NOT DONE ACCURATELY YET. DOCTOR AND MORNING SHIFT AWARE, TO BRND MEDS IN. PATIENT ABLE TO MAKE NEEDS KNOWN, CALL LIGHT WITHIN REACH, NO DISTRESS AT THIS TIME, BED AT LOWEST LEVEL, CRITICAL NOTIFICATION MADE TO DOCTOR AND IS AWARE.
[2025-09-11] MEDS ORDERED: Polyethylene Glycol 3350 17 gm PO PRN (07:30)
[2025-09-11 15:21] LABS: U Amphetamine Screen Not Detected; U Barbiturate Screen Not Detected; U Benzodiazapine Screen Not Detected; U Buprenorphine Screen Not Detected; U Cannabinoids Screen Not Detected; U Cocaine Screen Not Detected; U Methadone Screen Not Detected; U Methamphetamine Screen Not Detected; U Opiates Screen Not Detected; U Phencyclidine Screen Not Detected
[2025-09-11 15:22] LABS: U Oxycodone Screen DETECTED
[2025-09-11 16:44] LABS: Hematocrit 23.4 % (33.0-51.0); Hemoglobin 8.1 g/dL (11.5-16.0)
--- NOTE | 2025-09-11 18:08 | NUR ---
SUMMARY PT GOT A TOTAL OF 2 UNITS PRBC'S THIS SHIFT. HGB CAME UP TO 8.1. LABS IN AM ARE ORDERED. URINE SAMPLE COLLECTED FOR TOX SCREEN. PT UP 1 ASSIST TO BSC. PT DENIED GETTING DIZZY BUT DID STUMBLE SLIGTLY WHEN PULLING UP BRIEF. OTHERWISE STAND BY ASSIST. COLOSTOMY BAG EMPTIED TWICE TODAY. STOOL LOOSENING UP AFTER AM LACTULOSE. PT PLEASANTLY CONFUSED HOWEVER ANSWERS ALL ORIENTATION QUESTIONS CORRECTLY. AT BEDISE MAJORITY OF DAY.
[2025-09-11 20:43] LABS: Source, Urine Clean Catch
[2025-09-11] MEDS ORDERED: Docusate Sodium/Senna 1 Tab PO SCH (21:00)
[2025-09-11 21:02] LABS: Bilirubin, Urine Neg (Neg); Color, Urine Yellow (P-Yellow); Glucose Qualitative, Urine Neg (Neg); Ketones, Urine Neg (Neg); Leukocyte Esterase, Urine Neg (Neg); Protein, Urine 1+ (Neg); Specific Gravity, Urine 1.005 (1.003-1.022); Urobilinogen, Urine NORM (Normal)
[2025-09-12 00:09] VITALS: BP 113/64
[2025-09-12 06:12] LABS: Hematocrit 24.4 % (33.0-51.0); Hemoglobin 8.3 g/dL (11.5-16.0); Mean Corpuscular HGB Conc 34.0 g/dL (31.5-36.5); Mean Corpuscular Volume 88 fL (80-100); NRBC ABSOLUTE 0.00 K/mm3 (0.00-0.02); NRBC Auto 0.0 /100 WBC (0.0-0.2); RDW Coefficient Variation 14.7 % (11.7-14.2); RDW Standard Deviation 47.5 fL (35.1-46.3)
[2025-09-12 06:28] LABS: Platelet Count 12 K/mm3 (150-400)
[2025-09-12 06:43] LABS: Albumin, Blood 3.8 g/dL (3.4-5.0); Anion Gap 8 mmol/L (3-11); Blood Urea Nitrogen 31 mg/dL (8-24); CO2, Blood 22 mmol/L (21-32); Calcium, Blood 8.6 mg/dL (8.5-10.1); Chloride, Blood 111 mmol/L (98-108); Creatinine, Blood 1.02 mg/dL (0.40-1.00); Glucose, Blood 91 mg/dL (70-99); Magnesium, Blood 1.6 mg/dL (1.6-2.4); Phosphorus, Blood 4.0 mg/dL (2.5-4.9); Potassium, Blood 4.1 mmol/L (3.5-5.5); Sodium, Blood 137 mmol/L (136-145)
[2025-09-12 07:18] VITALS: BP 116/55
--- NOTE | 2025-09-12 07:51 | NUR ---
SHIFT SUMMARY; PATIENT SLEPT IN LONG INTERVALS, UP TO BR, TOLERATED BETTER. TELE NSR 91.DECLINED SCHEDULED SEN[place]OT, TRIED TO HAVE HER TAKE IT.
[2025-09-12 12:26] LABS: Hematocrit 27.5 % (33.0-51.0); Hemoglobin 9.3 g/dL (11.5-16.0); Mean Corpuscular HGB Conc 33.8 g/dL (31.5-36.5); Mean Corpuscular Volume 89 fL (80-100); NRBC ABSOLUTE 0.00 K/mm3 (0.00-0.02); NRBC Auto 0.0 /100 WBC (0.0-0.2); RDW Coefficient Variation 14.8 % (11.7-14.2); RDW Standard Deviation 47.6 fL (35.1-46.3)
[2025-09-12 13:18] LABS: Platelet Count 16 K/mm3 (150-400)
--- NOTE | 2025-09-12 15:30 | NUR ---
DISCHARGE PT DISCHARGED HOME. NO NEW MEDICATIONS. EDUCATED PT AND PT SPOUSE RE INSTRUCTION TO CONTINUE MEDICATIONS IS AND TO FOLLOW UP WITH PCP AND ONCOLOGIST PER HOSPITALIST DC INSTRUCTIONS. PT DRESSED SELF AND ABLE TO STAND AND AMBULATE TO WC. BOTH PIV REMOVED BY RN AND SITES APPEAR WNL. TELE REMOVED/CLEANED AND SENT BACK TO PCU. RN WHEELED PT DOWN TO PRIVATE VEHICLE. HOME MEDICATIONS RETURNED TO PT SPOUSE.
[2025-09-12] MEDS ORDERED: MetFORMIN HCl 500 mg PO SCH (17:00)
== END 2025-09-12 15:29 | disposition home or self-care (01) ==
LOC: ER 00:56 → MEDS 00:57
PROVIDERS: Emergency Medicine; Family Medicine; Internal Medicine; ADMIT Internal Medicine
DX: C55 Malignant neoplasm of uterus, part unspecified (principal); F06.4 Anxiety disorder due to known physiological condition; E87.6 Hypokalemia; D61.810 Antineoplastic chemotherapy induced pancytopenia; D69.6 Thrombocytopenia, unspecified; R53.1 Weakness; R25.1 Tremor, unspecified; K21.9 Gastro-esophageal reflux disease without esophagitis; I12.9 Hypertensive chronic kidney disease with stage 1 through stage 4 chronic kidney disease, or unspecified chronic kidney disease; N18.2 Chronic kidney disease, stage 2 (mild); D63.1 Anemia in chronic kidney disease; Z79.899 Other long term (current) drug therapy; Z85.038 Personal history of other malignant neoplasm of large intestine; Z88.0 Allergy status to penicillin; Z90.49 Acquired absence of other specified parts of digestive tract; Z91.018 Allergy to other foods; Z91.040 Latex allergy status; Z92.21 Personal history of antineoplastic chemotherapy
CPT/HCPCS: 36415; 36430; 74174; 80053; 80069; 82728; 83540; 83550; 83690; 83735; 83880; 84484; 85014; 85018; 85025; 85027; 85045; 86850; 86900; 86901; 86923; 93005; 93010; 99285-25; A9270; G0378; J7030; J7040; P9016; Q9967

== ENCOUNTER 2025-09-25 00:19 | Day surgery (SDC) | payer OTHER ==
[2025-09-25] MEDS ORDERED: NS 250 ML IV SCH (07:00)
[2025-09-25 10:28] VITALS: BP 96/74
[2025-09-25] MEDS ORDERED: DOC250 PO (10:43)
[2025-09-25] MEDS ORDERED: IBUP200 PO (10:43)
[2025-09-25 10:56] VITALS: BP 110/62
[2025-09-25 11:15] VITALS: BP 108/70
== END 2025-09-25 11:18 | disposition home or self-care (01) ==
LOC: ATC 00:19
DX: D61.818 Other pancytopenia (principal); C57.00 Malignant neoplasm of unspecified fallopian tube; D70.1 Agranulocytosis secondary to cancer chemotherapy; T45.1X5A Adverse effect of antineoplastic and immunosuppressive drugs, initial encounter; R53.0 Neoplastic (malignant) related fatigue; C79.31 Secondary malignant neoplasm of brain; C77.1 Secondary and unspecified malignant neoplasm of intrathoracic lymph nodes; K21.9 Gastro-esophageal reflux disease without esophagitis; M79.7 Fibromyalgia; Z88.0 Allergy status to penicillin; Z91.040 Latex allergy status; Z93.3 Colostomy status
CPT/HCPCS: 36415; 36430; 86900; 86901; J1642; J7050; P9035

== ENCOUNTER 2025-10-02 10:44 | Day surgery (SDC) | payer OTHER ==
[2025-10-02] VITALS (7 sets, daily range): BP systolic 90–120; BP diastolic 50–65
[~2025-10-02 10:44] MED LIST changes: +DOC250 PO; +IBUP200 PO
[2025-10-02] MEDS ORDERED: NS 250 ML IV SCH (10:50)
--- NOTE | 2025-10-02 22:26 | NUR ---
PT FINISHED 2ND UNIT OF PRBC AND UNIT OF PLATELETS. NO ISSUES DURING INFUSION AND VITALS REMAINED STABLE. PT REPORTED NO S/S OF ADVERSE REACTION. PT UP TO USE BATHROOM BEFORE LEAVING AND TOOK PT OUT TO CAR WITH HER HOME WHEELCHAIR.
== END 2025-10-02 22:20 | disposition home or self-care (01) ==
LOC: ATC 10:44
DX: C57.00 Malignant neoplasm of unspecified fallopian tube (principal); D61.818 Other pancytopenia; Z91.040 Latex allergy status; Z88.0 Allergy status to penicillin
CPT/HCPCS: 36415; 36430; 86850; 86900; 86901; 86923; J1642; P9016; P9035

== ENCOUNTER → 2025-10-08 | Day surgery (SDC) | payer OTHER ==
[~2025-10-08] MED LIST changes: +NS 250 ML IV SCH
[2025-10-08 10:58] VITALS: BP 117/57
[2025-10-08 11:37] LABS: Hematocrit 24.1 % (33.0-51.0); Hemoglobin 8.0 g/dL (11.5-16.0); Mean Corpuscular HGB Conc 33.2 g/dL (31.5-36.5); Mean Corpuscular Volume 93 fL (80-100); NRBC ABSOLUTE 0.00 K/mm3 (0.00-0.02); NRBC Auto 0.0 /100 WBC (0.0-0.2); RDW Coefficient Variation 15.6 % (11.7-14.2); RDW Standard Deviation 53.1 fL (35.1-46.3)
[2025-10-08 11:45] LABS: Platelet Count 4 K/mm3 (150-400)
[2025-10-08 12:03] LABS: Alanine Aminotransfer (ALT/SGP 50.0 U/L (12-78); Albumin, Blood 3.6 g/dL (3.4-5.0); Albumin/Globulin Ratio 1.2 (0.8-1.8); Anion Gap 7.0 mmol/L (3-11); Aspartate Aminotrans (AST/SGOT 25.0 U/L (12-37); Bilirubin, Total 1.0 mg/dL (0.1-1.0); Blood Urea Nitrogen 24.0 mg/dL (8-24); CO2, Blood 27.0 mmol/L (21-32); Calcium, Blood 8.4 mg/dL (8.5-10.1); Chloride, Blood 108.0 mmol/L (98-108); Creatinine, Blood 0.79 mg/dL (0.40-1.00); Globulin, Blood 3.1 g/dL (2.2-4.0); Glucose, Blood 85.0 mg/dL (70-99); Potassium, Blood 4.1 mmol/L (3.5-5.5); Sodium, Blood 138.0 mmol/L (136-145); Total Protein, Blood 6.7 g/dL (6.4-8.2)
[2025-10-08 12:12] LABS: BAND PERCENT MAN 2 % (0-8); BASOPHILS ABSOLUTE MAN 0.00 K/mm3 (0.00-0.23); BASOPHILS PERCENT MAN 0 % (0-2); EOSINOPHILS ABSOLUTE MAN 0.00 K/mm3 (0.00-0.68); EOSINOPHILS PERCENT MAN 0 % (0-6); LYMPHOCYTES % ATYPICAL MANUAL 2 % (0-0); LYMPHOCYTES ABSOLUTE MAN 0.66 K/mm3 (0.84-5.20); LYMPHOCYTES PERCENT MAN 26 % (21-46); MONOCYTES ABSOLUTE MAN 0.18 K/mm3 (0.16-1.47); MONOCYTES PERCENT MAN 8 % (4-13); NEUTROPHILS ABSOLUTE MAN 1.51 K/mm3 (1.96-9.15); SEG NEUTROPHILS PERCENT MAN 62 % (41-73)
== END ==
LOC: ATC 02:40
PROVIDERS: Internal Medicine Hematology & Oncology
DX: C57.00 Malignant neoplasm of unspecified fallopian tube (principal); D61.818 Other pancytopenia; K21.9 Gastro-esophageal reflux disease without esophagitis; I10 Essential (primary) hypertension; Z91.040 Latex allergy status; Z88.0 Allergy status to penicillin
CPT/HCPCS: 36591; 80053; 85025; J1642

== ENCOUNTER 2025-10-09 08:37 | Day surgery (SDC) | payer OTHER ==
[2025-10-09 14:00] VITALS: BP 113/57
[2025-10-09 15:27] VITALS: BP 120/61
[2025-10-09 15:47] VITALS: BP 126/61
[2025-10-17] MEDS ORDERED: Diflucan100 MG PO (07:29)
[2025-10-17] MEDS ORDERED: LEVOFLOXACIN50011 PO (07:29)
[2025-10-17] MEDS ORDERED: ACYCLOVIR400 MG PO (07:29)
== END 2025-10-09 15:53 | disposition home or self-care (01) ==
LOC: ATC 08:37
DX: C57.00 Malignant neoplasm of unspecified fallopian tube (principal); D61.818 Other pancytopenia; K21.9 Gastro-esophageal reflux disease without esophagitis; I10 Essential (primary) hypertension
CPT/HCPCS: 36415; 36430; 85025; 86900; 86901; J1642; J7050; P9035